=== PATIENT | female | born 1975 | race Caucasian/White ===

== ENCOUNTER 2024-07-01 21:25 | Observation (INO) | payer OTHER, SELFPAY ==
[2024-07-01 21:27] VITALS: BP 175/112; PULSE 128; RESP 18; TEMP 36.6; O2SAT 98; BMI 32.3
[2024-07-01 22:00] VITALS: BP 153/103; PULSE 121; O2SAT 98
[2024-07-01 22:30] VITALS: BP 163/110; PULSE 117; O2SAT 95
--- NOTE | 2024-07-01 22:59 | HMH.EDGENADL ---
Discharge Plan Disposition Chief Complaint: Ear Clinical Impressions Clinical Impression: Alcohol withdrawal, Acute hypokalemia, ZENIA (acute kidney injury), Acute hyponatremia, Ear pain Print Language Print Language: Pakistani Discharge ED Provider: Ke Rogel General Adult HPI General Chief complaint: Ear Stated complaint: sweats, swollen lymphnodes, weakness Time Seen by Provider: 07/01/24 22:59 Mode of Arrival: Ambulatory Source of Information: Patient Limitations: No Limitations Description of Symptoms (Recalled from ER Triage Doc. by RN): Patient reports swollen nodules bilaterally around neck/ears along with bilateral ear pain. Has not had her propanolol today. Daily drinker- last drink around 3-4:00pm today History of Present Illness HPI narrative: 49-year-old female with history of anxiety and depression, daily drinker, reports approximately 8 drinks per day, presents with left ear pain and tenderness. She reports it has been bothering her for the last couple of days. It is relatively severe. She reports swelling and tenderness in the area of her left mastoid. She reports she has only had 1 drink today. Related Data Allergies Allergy/AdvReac Type Severity Reaction Status Date / Time Sulfa (Sulfonamide Allergy Unknown Hives Verified 07/01/24 23:35 Antibiotics) (SULFA (SULFONAMIDE ANTIBIOTICS)) [facility] Disclaimer: The information contained in this section may have been updated after the patient was seen, as this information can be updated by other users. Social History Smoking Status: Current every day smoker alcohol intake: current current occupational status: other ROS Obtained: Yes All systems reviewed & no additional complaints except as documented Physical Exam General General appearance: alert and anxious Head Head exam: atraumatic and normocephalic Eye Eye exam: Present normal appearance, PERRL and EOMI ENT ENT exam: Present normal oropharynx and other (There is swelling and tenderness over the left mastoid with some protrusion of the left ear. The skin is not erythematous. There is mild erythema of the EAC bilaterally, no evidence of otitis media.) Neck Neck exam: Present normal inspection and full ROM Chest Chest inspection: Present normal inspection and symmetric chest wall rise; Absent tenderness Respiratory Respiratory exam: Present normal lung sounds bilaterally; Absent respiratory distress Cardiovascular Cardiovascular exam: Present normal rhythm and tachycardia Abdominal Exam Abdominal exam: Present soft; Absent distention, tenderness or guarding Extremities Exam Extremities exam: Present normal inspection; Absent edema or joint swelling Back Exam Back exam: Present normal inspection; Absent tenderness Neurological Exam Neurological exam: Present alert and oriented X3; Absent motor sensory deficit Psychiatric Psychiatric exam: Present anxious Skin Skin exam: Present warm, normal color and diaphoresis Lymphatic Lymphatic Findings: no adenopathy Medical Decision Making Medical Records Medical records reviewed: Yes I reviewed the patient's medical records. Screening: Per USPSTF and CDC recommendations, given the prevalence of disease in our region, it is our hospital?s policy to screen for HIV and viral Hepatitis for all patients aged 18 and over and those with ongoing risk factors. Buzz Inquiry Pt receiving controlled substance: No Buzz was queried for this patient: No Vital Signs: 07/01/24 21:27 07/01/24 22:00 07/01/24 22:30 Temperature 97.9 F Temperature Source Oral Pulse Rate 121 H 117 H Pulse Rate [Right Radial] 128 H Respiratory Rate 18 Blood Pressure 153/103 H 163/110 H Blood Pressure [Right Arm] 175/112 H Blood Pressure Mean [Right Arm] 133 Blood Pressure Source [Right Arm] Automatic Cuff Blood Pressure Position [Right Arm] Supine 02 Sat by Pulse Oximetry 98 98 95 Oxygen Delivery Method Room Air 07/01/24 23:00 07/01/24 23:30 07/02/24 00:15 Temperature Temperature Source Pulse Rate 121 H 120 H 112 H Pulse Rate [Right Radial] Respiratory Rate Blood Pressure 151/103 H 179/106 H 163/102 H Blood Pressure [Right Arm] Blood Pressure Mean [Right Arm] Blood Pressure Source [Right Arm] Blood Pressure Position [Right Arm] 02 Sat by Pulse Oximetry 95 94 L 94 L Oxygen Delivery Method 07/02/24 00:33 07/02/24 01:00 07/02/24 01:31 Temperature Temperature Source Pulse Rate 114 H 115 H 111 H Pulse Rate [Right Radial] Respiratory Rate Blood Pressure 138/78 132/88 130/80 Blood Pressure [Right Arm] Blood Pressure Mean [Right Arm] Blood Pressure Source [Right Arm] Blood Pressure Position [Right Arm] 02 Sat by Pulse Oximetry 93 L 96 96 Oxygen Delivery Method 07/02/24 02:00 07/02/24 02:30 Temperature Temperature Source Pulse Rate 110 H 114 H Pulse Rate [Right Radial] Respiratory Rate Blood Pressure 127/97 H 119/81 Blood Pressure [Right Arm] Blood Pressure Mean [Right Arm] Blood Pressure Source [Right Arm] Blood Pressure Position [Right Arm] 02 Sat by Pulse Oximetry 95 96 Oxygen Delivery Method Lab Data Lab results reviewed: Yes I reviewed the patient's lab results. Lab Results 07/01/24 23:13: WBC 16.1 H, RBC 5.35, Hgb 16.8 H, Hct 46.4, MCV 86.7, MCH 31.4 H, MCHC 36.2 H, RDW 14.8, Plt Count 365, MPV 7.7, Neut % (Auto) 81.0 H, Lymph % (Auto) 10.3, [place] % (Auto) 7.2, Eos % (Auto) 0.5, Baso % (Auto) 1.0, Neut # (Auto) 13.1 H, Lymph # (Auto) 1.7, [place] # (Auto) 1.2 H, Eos # (Auto) 0.1, Baso # (Auto) 0.2, Total Counted 100, Neutrophils % (Manual) 85 H, Lymphocytes % (Manual) 12, Monocytes % (Manual) 3, Platelet Estimate Normal, Stomatocytes 1+, PT 11.4, INR 1.02, APTT 28.1, Sodium 129 L, Potassium 1.7 L* 07/01/24 23:13: Potassium 1.7 L*, Chloride 76 L, Carbon Dioxide 38 H, Anion Gap 16.7 H, BUN 25 H, Creatinine 1.40 H, Estimated Creat Clear 74, Estimated GFR 40 L, Est GFR ( Amer) 48 L, Glucose 150 H, Calcium 9.5, Phosphorus 3.1, Magnesium 1.7, Total Bilirubin 1.9 H, AST 62 H, ALT 66, Alkaline Phosphatase 131 H, Total Protein 7.9, Albumin 4.7, Globulin 3.2, Albumin/Globulin Ratio 1.5, Serum HCG, Qual Negative, Plasma/Serum Alcohol < 10 07/01/24 23:55: Lactate 1.4 07/02/24 00:35: SARS-CoV-2 (PCR) Not detected, Influenza A Untype (PCR) Not detected, Influenza Type B (PCR) Not detected 07/01/24 23:13 07/01/24 23:13 Orders (Tests/Meds): ED MEDICATIONS Generic Name Dose Route Start Last Admin Trade Name Freq PRN Reason Stop Dose Admin Diazepam 10 mg 07/01/24 23:57 Diazepam 10mg/2ml Syringe IV 07/31/24 23:56 Q1HP PRN CIWA >16 Diazepam 5 mg 07/01/24 23:57 Diazepam 10mg/2ml Syringe IV 07/31/24 23:56 Q1HP PRN CIWA Score 8-15 Diazepam 5 mg 07/01/24 23:57 Diazepam 5mg Tablet PO 07/31/24 23:56 Q6HP PRN CIWA 2-7 Folic Acid 1 mg 07/02/24 00:33 07/02/24 00:36 Folic Acid 1mg Tablet PO 07/02/24 00:34 1 mg ONCE ONE Administration Multivitamins 10 ml/ Thiamine 1,015 mls @ 150 mls/hr 07/02/24 00:33 07/02/24 00:37 HCl 100 mg/ Magnesium Sulfate IV 07/02/24 07:18 150 mls/hr 2 gm/ Lactated Ringer's .Q6H46M JOSE Administration Iopamidol 75 ml 07/02/24 01:16 07/02/24 01:16 Iopamidol-370 (76%);100ml Bottle IV 07/02/24 01:17 75 ml ONCE ONE Administration Sodium Chloride 10 ml 07/02/24 01:16 07/02/24 01:16 Sodium Chloride 0.9% 10ml Syr (Rad Only) IV 07/02/24 01:17 10 ml ONCE ONE Administration Discontinued Medications Generic Name Dose Route Start Last Admin Trade Name Freq PRN Reason Stop Dose Admin Acetaminophen 1,000 mg 07/01/24 23:13 07/01/24 23:37 Acetaminophen 500mg Tab PO 07/01/24 23:14 1,000 mg ONCE ONE Administration Folic Acid 1 mg 07/02/24 09:00 Folic Acid 1mg Tablet PO 08/01/24 08:59 DAILY JOSE Sodium Chloride 1,000 mls @ 999 mls/hr 07/01/24 23:15 07/01/24 23:37 Sod Chlor 0.9% 1000ml Bag IV 07/02/24 00:15 999 mls/hr .Q1H1M JOSE Administration Clindamycin Phosphate 600 mg in 50 mls @ 100 mls/hr 07/01/24 23:13 07/02/24 00:26 Clindamycin 600mg/50ml D5w Premix IV 07/01/24 23:42 100 mls/hr ONCE ONE Administration Potassium Chloride/Water 100 mls @ 100 mls/hr 07/01/24 23:45 07/02/24 01:57 Potassium Chloride 10meq/100ml Ivpb IV 07/02/24 02:44 100 mls/hr Q1H JOSE Administration Ketorolac Tromethamine 30 mg 07/01/24 23:13 07/01/24 23:37 Ketorolac 30mg/Ml Vial IV 07/01/24 23:14 30 mg ONCE ONE Administration Multivitamins 1 each 07/02/24 17:00 Multivitamin Tablet PO 08/01/24 16:59 1700 JOSE Potassium Chloride 40 meq 07/01/24 23:42 07/01/24 23:50 Potassium Chloride 20meq Tab PO 07/01/24 23:43 40 meq ONCE ONE Administration Thiamine HCl 100 mg 07/02/24 09:00 Thiamine 100mg Tablet PO 07/04/24 09:01 DAILY JOSE ORDERS Category Date Time Status CT Temporal bone With Stat Cat Scan 07/02/24 00:46 Completed Activated Partial Thrombo Time Routine Lab 07/01/24 23:13 Completed CBC w/Auto Diff [Complete Blood Count Auto Diff] Stat Lab 07/01/24 23:13 Completed CMP [Comprehensive Metabolic Panel] Stat Lab 07/01/24 23:13 Completed Ethyl Alcohol Stat Lab 07/01/24 23:13 Completed HCG Qualitative, Serum Stat Lab 07/01/24 23:13 Completed Lactic Acid Stat Lab 07/01/24 23:55 Completed Magnesium Stat Lab 07/01/24 23:13 Completed Phosphorous Routine Lab 07/01/24 23:13 Completed Potassium Stat Lab 07/01/24 23:13 Completed Prothrombin Time INR Routine Lab 07/01/24 23:13 Completed Rapid PCR Covid and Flu A/B Stat Lab 07/02/24 00:35 Completed Blood Culture Stat Micro 07/02/24 00:08 Ordered EKG Request [ECG Request] Stat Y 07/01/24 23:42 Ordered ECG Data Tracing #1: I reviewed this ECG and interpreted as documented below: Sinus tachycardia with rate of 114, no significant ST changes. Possible QT prolongation, T wave flattening noted. ECG initial impression date: 07/02/24 ECG initial impression time: 00:05 Tissue Perfus/Sepsis Re-Eval Sepsis Re-Evaluation Performed: Yes Date Performed: 07/02/24 Time Performed: 03:00 Medical Decision Narrative: 49-year-old female with history of anxiety depression, daily drinker, has not had much to drink today, presents with concerns for left ear pain, mastoid swelling and tenderness. On arrival patient is hypertensive, tachycardic to 120, anxious and diaphoretic appearing. Exam shows swelling and tenderness behind the left mastoid without overlying erythema. . History was obtained via interactive discussion with patient. Differential includes but is not limited to mastoiditis, otitis externa, otitis media, lymphadenopathy, dehydration, alcohol withdrawal.. Patient was given IV clindamycin, rally pack, IV and p.o. potassium for symptomatic management and correction of underlying abnormalities. Workup initiated including CBC CMP mag blood cultures CT temporal bones to assess for mastoiditis. Initial CIWA score of 6, patient given Valium 10 mg IV. On re-evaluation, patient reports symptomatic improvement. Vital signs improved but patient angélica tachycardic. Laboratory workup independently interpreted by me and significant for severe hypokalemia with potassium 1.7. On recheck potassium is confirmed at 1.7. Other electrolyte derangements include hyponatremia, hypochloremia, creatinine 1.4 with unknown baseline, BUN elevated, bilirubin and LFTs mildly elevated. White count 16. Alcohol level undetectable, COVID/flu swab negative. Imaging independently interpreted by me and significant for no evidence of mastoiditis. See radiology read for full review of final results. Given patient history, exam and workup, patient's presentation most likely represents acute alcohol withdrawal with significant electrolyte derangements including hypokalemia, hyponatremia, ZENIA with creatinine 1.4 and unknown baseline. Interactive discussion was had with patient, she is agreeable to admission. Interact discussion was had with the hospitalist on-call for admission.. Procedures Risk/Benefits of Procedure(s) Were Explained: Yes Critical Care Critical Care Time Critical Care Time: No
[2024-07-01 23:00] VITALS: BP 151/103; PULSE 121; O2SAT 95
[2024-07-01 23:23] LABS: Basophils # 0.2 K/mm3 (0-0.2); Eosinophils # 0.1 K/mm3 (0.0-0.4); Eosinophils % 0.5 % (0.1-12.0); Hematocrit 46.4 % (37.0-47.0); Hemoglobin 16.8 g/dL (12.2-16.2); Lymphocytes # 1.7 K/mm3 (0.7-4.5); Lymphocytes % 10.3 % (10-50); Mean Corpuscular HGB Conc 36.2 g/dL (31.8-35.4); Mean Corpuscular Hemoglobin 31.4 pg (27.0-31.2); Mean Corpuscular Volume 86.7 fl (81-99); Mean Platelet Volume 7.7 fl (7.4-10.4); Monocytes # 1.2 K/mm3 (0.1-1.0); Monocytes % 7.2 % (1.7-9.3); Neutrophils # 13.1 K/mm3 (1.8-7.8); Platelet Count 365 K/mm3 (142-424); Red Blood Count 5.35 M/mm3 (4.20-5.40); Red Cell Distribution Width 14.8 % (11.5-17.5); White Blood Count 16.1 K/mm3 (4.8-10.8)
[2024-07-01 23:24] LABS: MANUAL DIFFERENTIAL MANUAL DIFFERENTIAL (MANUAL DIFF)
[2024-07-01 23:30] VITALS: BP 179/106; PULSE 120; O2SAT 94
[2024-07-01 23:35] LABS: Albumin Level 4.7 g/dl (3.5-5.0); Chloride 76 mmol/L (98-107); Sodium 129 mmol/L (136-145)
[2024-07-01] MEDS: ACETAMINOPHEN 500MG TAB 1000 MG PO (23:37)
[2024-07-01] MEDS: KETOROLAC 30MG/ML VIAL 30 MG IV (23:37)
[2024-07-01] MEDS: 0.9 % SODIUM CHLORIDE 1000ML 1,000 ML 999 ML IV (23:37)
[2024-07-01 23:38] LABS: Alanine Aminotransferase 66 U/L (12-78); Albumin/Globulin Ratio 1.5 (1.1-1.8); Alkaline Phosphatase 131 U/L (38-126); Anion Gap 16.7 mEq/L (5-15); Aspartate Amino Transferase 62 U/L (14-36); Bilirubin,Total 1.9 mg/dl (0.2-1.3); Blood Urea Nitrogen 25 mg/dl (7-17); Calcium 9.5 mg/dl (8.4-10.2); Carbon Dioxide 38 mmol/L (22.0-30.0); Creatinine Clearance Estimated 74 mL/min (50-200); Estimated Glomerular Filt Rate 40 ml/min (>60); GFR (African American) 48 ML/MIN (>60); Globulin 3.2 g/dL (1.3-3.2); Glucose 150 mg/dl (74-100); HCG Qualitative, Serum Negative (Negative); Total Protein,Serum 7.9 g/dl (6.3-8.2)
[2024-07-01 23:41] LABS: Potassium 1.7 mmoL/L (3.5-5.1)
--- NOTE | 2024-07-01 23:41 | PC.NURSE ---
Critical potassium 1.[address] Ke Rogel
[2024-07-01 23:45] LABS: Lymphocytes % 12 % (10-50); Monocytes % 3 % (2-9); Neutrophils % 85 % (42-76); Platelet Estimate Normal; Stomatocytes 1+; Total Cells Counted 100
[2024-07-01] MEDS: POTASSIUM CHLORIDE 20MEQ TAB 40 MEQ PO (23:50)
--- NOTE | 2024-07-01 23:56 | PC.NURSE ---
Blood cultures drawn by lab
[2024-07-02] VITALS (13 sets, daily range): BP systolic 119–163; BP diastolic 64–102; PULSE 72–115; RESP 18–19; TEMP 36.4–37.1; O2SAT 93–98; BMI 32.3
--- NOTE | 2024-07-02 00:05 | ECG_ITS ---
APPROVED REPORT Exam: Resting ECG HR:114 bpm ECG Measurements Heart Rate 114 AXES AK 140 P 66 QRSd 94 QRS -29 QT 300 T 1 QTc 368 Conclusion SINUS TACHYCARDIA POSSIBLE ANTERIOR MYOCARDIAL INFARCTION , PROBABLY OLD [30 ms Q WAVE IN V3/V4, OR R < 0.2 mV IN V4] ABNORMAL RHYTHM ECG UNCONFIRMED REPORT Electronically signed by : ROSIO DUQUE, 07/02/2024 06:20:28
--- NOTE | 2024-07-02 00:11 | PC.NURSE ---
WA of [address] Rogel Per Juan F, give 10 of valium IV now
[2024-07-02 00:14] LABS: Potassium 1.7 mmoL/L (3.5-5.1)
[2024-07-02 00:17] LABS: Lactic Acid 1.4 mmol/L (0.7-2.1)
[2024-07-02 00:17] LABS: Ethyl Alcohol < 10 mg/dl (0-10); Phosphorous 3.1 mg/dl (2.5-4.5)
[2024-07-02 00:20] LABS: Activated Partial Thrombo Time 28.1 seconds (22.8-30.6); INR 1.02 (0.9-1.1); Prothrombin Time 11.4 seconds (10.1-12.5)
[2024-07-02] MEDS: CLINDAMYCIN PHOSPHATE/D5W 600 MG/50 ML PIGGYBACK 100 MG IV (00:26)
[2024-07-02] MEDS: FOLIC ACID 1MG TABLET 1 MG PO (00:36)
[2024-07-02] MEDS: MVI, ADULT NO.1 WITH VIT K 10 ML, THIAMINE HCL 100 MG, MAGNESIUM SULFATE 2 GM in LACTAT... 150 ML IV (00:37)
[2024-07-02 00:38] LABS: Coronavirus 19, PCR Not Detected (NotDetected); Influenza A, PCR Not Detected (NotDetected); Influenza B, PCR Not Detected (NotDetected)
[2024-07-02 00:41] LABS: Magnesium 1.7 mg/dl (1.6-2.3)
[2024-07-02] MEDS: KCl 10mEq/100ml 100 ML 100 MEQ IV ×3 (00:42→01:57)
--- NOTE | 2024-07-02 00:46 | CT_ITS ---
PROCEDURE INFORMATION: Exam: CT Temporal Bones With Contrast. Exam date and time: 07/02/2024 1:08 AM Age: 49 years old Clinical indication: Other: Left mastoid pain swelling TECHNIQUE: Imaging protocol: Computed tomography of the temporal bones with contrast. Radiation optimization: All CT scans at this facility use at least one of these dose optimization techniques: automated exposure control; mA and/or kV adjustment per patient size (includes targeted exams where dose is matched to clinical indication); or iterative reconstruction. Contrast material: ISOVUE 370; Contrast volume: 75 ml; Contrast route: INTRAVENOUS (IV); COMPARISON: No relevant prior studies available. FINDINGS: Right inner ear: Normal. Right ossicles and middle ear: Normal. The middle ear ossicles are intact. Right external auditory canal: Normal. Right facial nerve canal: Normal. Right jugular foramen: No jugular dehiscence. Right carotid canal: No aberrant carotid canal. Right mastoid air cells: Normal. No mastoid effusions. Left inner ear: Normal. Left ossicles and middle ear: Normal. The middle ear ossicles are intact. Left external auditory canal: Normal. Left facial nerve canal: Normal. Left jugular foramen: No jugular dehiscence. Left carotid canal: No aberrant carotid canal. Left mastoid air cells: Normal. No mastoid effusions. Orbital cavities: No acute intraorbital abnormality. Globes are intact and symmetric. Paranasal sinuses: Visualized paranasal sinuses are clear. Salivary glands: Parotid glands appear normal. Bones/joints: Normal. No acute fracture. No osseous erosion or destruction. Chronic appearing focal dehiscence in the right lamina papyracea. Soft tissues: Unremarkable. IMPRESSION: No acute findings.
[2024-07-02] MEDS: IOPAMIDOL-370 (76%);100ML BOTTLE 75 ML IV (01:16)
[2024-07-02] MEDS: SODIUM CHLORIDE 0.9% 10ML SYR (RAD ONLY) 10 ML IV (01:16)
--- NOTE | 2024-07-02 03:01 | PC.NURSE ---
Attempted to call Dwight to give report, dwight did not answer phone.
--- NOTE | 2024-07-02 03:02 | PC.NURSE ---
Notified charger testerROD Hartman that I was not able to get ahold of dwight. States she will have her call back down here.
--- NOTE | 2024-07-02 03:28 | P.HP_ITS ---
<Statement entered by Bautista Garcia MD - 07/03/24 17:43> I personally evaluated patient and agree with the plan of care as outlined by the DRUM ATTENDANT. History of Present Illness *Admission Date: 07/02/24 *Reason for visit:: Hypokalemia *History of present illness: Mckayla Miller is a 49-year-old female past medical history significant for alcohol abuse, anxiety, depression, HTN who presents emergency room tonight with complaints of ear pain. Ms. Miller reports she fell like she had some swollen nodules bilaterally around her neck and behind her ears, reports denies any fever. Tells me she is a daily drinker, drinks 8 or more white claws daily. Denies any alcohol withdrawal or seizures in the past. Did have 1 drink earlier today. Works at a local assisted. Denies any cough, chest pain, shortness of breath, abdominal pain, bowel or bladder dysfunction. No dysuria noted. No nausea, vomiting, diarrhea. No focal neurodeficits noted. Denies a headache or neck pain. Smokes about a pack of cigarettes per day. Denies any illicit drug use. Lab work in the ER showed an elevated white count of 16,000, potassium critically low at 1.7, sodium at 129. BUN and creatinine elevated at 25 and 1.4, anion gap elevated at 16. Lactic acid at 1.4, she was negative for flu and COVID. Serum alcohol level is less than 10. Patient presented tachycardic and anxious appearing. She was given Valium down in the ER and at 1 L IV fluid bolus. She was also started on a banana bag . She will be admitted to the hospitalist service for hypokalemia and ZENIA. [facility] Disclaimer: The information contained in this section may have been updated after the patient was seen, as this information can be updated by other users. Social History (Updated 07/02/24 @ 03:02 by Ke Rogel MD) Smoking Status: Current every day smoker alcohol intake: current current occupational status: other Review of Systems Review of Systems Review of systems:: pertinent systems reviewed and negative unless documented below Constitutional Constitutional: Reports fatigue and Reports lethargy ENT Ears, Nose, Mouth, and Throat: Reports otalgia Endocrine Endocrine: Reports fatigue Meds Home Medications and Allergies New Prescriptions to Start Prescriptions: Allergies Allergy/AdvReac Type Severity Reaction Status Date / Time Sulfa (Sulfonamide Allergy Unknown Hives Verified 07/01/24 23:35 Antibiotics) (SULFA (SULFONAMIDE ANTIBIOTICS)) Exam Data for Last 24 hours Vital signs and Labs for Last 24 Hours: Temp Pulse Resp BP Pulse Ox O2 Del Method 97.9 F 72 18 130/64 96 Room Air 07/02/24 03:24 07/02/24 03:24 07/02/24 03:24 07/02/24 03:24 07/02/24 02:30 07/02/24 03:24 Laboratory Results - last 24 hr 07/01/24 23:13: WBC 16.1 H, RBC 5.35, Hgb 16.8 H, Hct 46.4, MCV 86.7, MCH 31.4 H , MCHC 36.2 H, RDW 14.8, Plt Count 365, MPV 7.7, Neut % (Auto) 81.0 H, Lymph % (Auto) 10.3, [place] % (Auto) 7.2, Eos % (Auto) 0.5, Baso % (Auto) 1.0, Neut # (Auto) 13.1 H, Lymph # (Auto) 1.7, [place] # (Auto) 1.2 H, Eos # (Auto) 0.1, Baso # (Auto) 0.2, Total Counted 100, Neutrophils % (Manual) 85 H, Lymphocytes % (Manual) 12, Monocytes % (Manual) 3, Platelet Estimate Normal, Stomatocytes 1+, PT 11.4, INR 1.02, APTT 28.1, Sodium 129 L, Potassium 1.7 L* 07/01/24 23:13: Potassium 1.7 L*, Chloride 76 L, Carbon Dioxide 38 H, Anion Gap 16.7 H, BUN 25 H, Creatinine 1.40 H, Estimated Creat Clear 74, Estimated GFR 40 L, Est GFR ( Amer) 48 L, Glucose 150 H, Calcium 9.5, Phosphorus 3.1, Magnesium 1.7, Total Bilirubin 1.9 H, AST 62 H, ALT 66, Alkaline Phosphatase 131 H, Total Protein 7.9, Albumin 4.7, Globulin 3.2, Albumin/Globulin Ratio 1.5, Serum HCG, Qual Negative, Plasma/Serum Alcohol < 10 07/01/24 23:55: Lactate 1.4 07/02/24 00:35: SARS-CoV-2 (PCR) Not detected, Influenza A Untype (PCR) Not detected, Influenza Type B (PCR) Not detected I & O for Last 24 hours: Intake & Output 06/29/24 06/30/24 07/01/24 07/02/24 23:59 23:59 23:59 23:59 Weight 96.615 kg Constitutional Constitutional: no acute distress *Routine HEENT Exam Head: Present normocephalic Eye: Present EOMI and PERRL ENT: Present mucous membranes moist *Routine Neck Exam Neck: Present supple; Absent lymphadenopathy *Routine Respiratory Exam Respiratory: Present CTA bilaterally *Routine Cardiovascular Exam Cardiovascular: Present RRR and tachycardia *Routine Abdominal Exam Abdominal: Present soft and normoactive bowel sounds; Absent tenderness *Routine Rectal Exam Rectal:: deferred *Routine Genitalia Exam Genitalia:: deferred *Routine Extremities Exam Extremities: Absent cyanosis, clubbing or edema *Routine Skin Exam Skin: Present warm; Absent rash *Routine Neurological Exam Neurological: Present alert and oriented X3 Assessment and Plan *Assessment and plan (1) ZENIA (acute kidney injury): Status: Acute Category: Medical Code(s): N17.9 - Acute kidney failure, unspecified (2) Acute hypokalemia: Status: Acute Category: Medical Code(s): E87.6 - Hypokalemia (3) Alcohol withdrawal: Status: Acute Qualifiers: Complication of substance-induced condition: with unspecified complication Qualified Code(s): F10.939 - Alcohol use, unspecified with withdrawal, unspecified Category: Medical Code(s): F10.939 - Alcohol use, unspecified with withdrawal, unspecified Plan Assessment: This is a 49-year-old female being admitted for hypokalemia and ZENIA. On my exam, patient is lying in bed in no acute distress. Reports she is feeling much better. Plan: Admit to observation-MedSurg Hypokalemia -From poor p.o. intake? -Potassium replacement being given, will recheck potassium levels throughout the day and replace per protocol -Telemetry Alcohol abuse Alcohol withdrawal? -Patient reports that she does feel anxious, has not taken her Inderal today for her anxiety. -As needed Valium -Check CIWA scores frequently -Telemetry ZENIA versus CKD? -Have no prior lab values to compare her current creatinine to -Received a IV fluid bolus in the ER and is getting a banana bag -Avoid nephrotoxic medications -Monitor serum BUN and creatinine Leukocytosis meeting SIRS criteria -Unclear source of leukocytosis -Will order a UA and a UDS -Patient without abdominal pain, no chest pain, no cough. Will defer further imaging at this time. If white count continues to elevate, will reevaluate the need for additional imaging Anxiety/depression -Patient takes Inderal, is unsure of the dose and I have no records of prior fill history DVT prophylaxis: Heparin CODE STATUS: Full code Surrogate decision maker: Nesha [phone] Skin: Low risk Estimated length of stay: Less than 2 midnights
[2024-07-02] MEDS: diazePAM 5MG TABLET 5 MG PO ×2 (05:21→23:42)
[2024-07-02 06:44] LABS: Blood Urea Nitrogen 20 mg/dl (7-17); Calcium 8.3 mg/dl (8.4-10.2); Carbon Dioxide 39 mmol/L (22.0-30.0); Chloride 82 mmol/L (98-107); Creatinine Clearance Estimated 86 mL/min (50-200); Estimated Glomerular Filt Rate 48 ml/min (>60); GFR (African American) 58 ML/MIN (>60); Glucose 119 mg/dl (74-100); Sodium 131 mmol/L (136-145)
[2024-07-02 07:05] LABS: Magnesium 2.3 mg/dl (1.6-2.3)
[2024-07-02 07:40] LABS: Basophils # 0.1 K/mm3 (0-0.2); Basophils % 0.7 % (0.1-2.0); Eosinophils # 0.1 K/mm3 (0.0-0.4); Eosinophils % 0.7 % (0.1-12.0); Hematocrit 39.1 % (37.0-47.0); Lymphocytes # 2.2 K/mm3 (0.7-4.5); Mean Corpuscular HGB Conc 35.9 g/dL (31.8-35.4); Mean Corpuscular Hemoglobin 31.5 pg (27.0-31.2); Mean Corpuscular Volume 87.6 fl (81-99); Mean Platelet Volume 7.7 fl (7.4-10.4); Monocytes # 0.9 K/mm3 (0.1-1.0); Monocytes % 10.2 % (1.7-9.3); Neutrophils # 5.7 K/mm3 (1.8-7.8); Neutrophils % 63.5 % (37.0-80.0); Platelet Count 322 K/mm3 (142-424); Red Blood Count 4.46 M/mm3 (4.20-5.40); Red Cell Distribution Width 14.9 % (11.5-17.5); White Blood Count 8.9 K/mm3 (4.8-10.8)
--- NOTE | 2024-07-02 08:00 | PC.NURSE ---
07/02/24 0700 Pt. admitted overnight for Hypokalemia, alcohol withdrawl. Pt. Alert and orientated x 4. CIWA score 2. vital signs stable. pt. slept off and on. up to bathroom with assist x 1. vital signs stable, personal items and call white in reach,
[2024-07-02] MEDS: 0.9 % SODIUM CHLORIDE 1000ML 1,000 ML 999 ML IV (08:09)
--- NOTE | 2024-07-02 08:09 | HMH.PHAINT1 ---
Pharmacy Intervention Comments: MEDICATION RECONCILIATION COMPLETED ON PATIENT USING EXTERNAL FILL HISTORY AND NAIF REPORT. -MARYANN SILVA, WILLIED
[2024-07-02] MEDS: POTASSIUM CHLORIDE 20MEQ TAB 40 MEQ PO (08:10)
[2024-07-02] MEDS: PROPRANOLOL 20MG TAB 40 MG PO (08:10)
[2024-07-02] MEDS: CITALOPRAM 20MG TABLET 20 MG PO (08:11)
[2024-07-02] MEDS: KCl 20mEq/100ml 100 ML 50 MEQ IV ×7 (08:12→23:43)
--- OUTSIDE RECORDS SUMMARY | 2024-07-02 10:04 | XMS_ITS | Encounter Summary ---
[facility] Address [address] [place] [address] Care Team Providers Care Leather Worker Name Role Phone Provider, No Known Primary Care Provider Unavail able Reason for Visit * Reason Comments Diarrhea watery the last 24 t imes. had this same thing 3 weeks ago until it went away. Feeling lightheaded. No appetite Fever faced flushed, sweat /chills, bodyaches Encounter Details Date Type Department Care Team (Latest Contact Info) Description 09/16/2017 4:17 PM EST - 09/16/2017 4:39 PM EST Hospital Encounter [facility] [address] [facility] [address] [place] [address] Carmela Moore DO Febrile illness (Primary Dx) Discharge Disposition: Home or Self Care Social History Tobacco Use Types Packs/Day Years Used Date Smoking Tobacco: Every Day Smokeless Tobacco: Never Comments Unknown Sex and Gender Information Value Date Recorded Sex Assigned at Not on file Legal Sex Female 12:25 PM EDT Gender Identity Not on file Sexual Orientation Not on file documented as of this encounter Last Filed Vital Signs Vital Sign Reading Time Taken Comments Blood Pressure 109/74 09/16/2017 4:29 PM EST Pulse 92 09/16/2017 4:29 PM EST Temperature 37.2 ??C (99 ??F) 09/16/2017 4:29 PM EST Respiratory Rate 18 09/16/2017 4:29 PM EST Oxygen Saturation 99% 09/16/2017 4:29 PM EST Inhaled Oxygen Concentration - - Weight - - Height - - Body Mass Index - - documented in this encounter Medications at Time of Discharge atenolol (TENORMIN) 100 MG tablet Take 100 mg by mouth Daily. documented as of this encounter ED Notes * Carmela Moore DO - 09/16/2017 4:38 PM EST Subjective History of Present Illness Pt states she feels very weird she is dizzy and feel numbness in her arms and hands. Review of Systems Objective Physical Exam BP 109/74 (BP Location: Left arm, Patient Position: Sitting) Pulse 92 Temp 99 ??F (37.2 ??C) (Temporal Artery ) Resp 18 SpO2 99% Past Medical History: Diagnosis Date ??? Anxiety Social History Social History ??? Marital status: Single Spouse name: N/A ??? Number of children: N/A ??? Years of education: N/A Occupational History ??? Not on file. Social History Main Topics ??? Smoking status: Current Every Day Smoker ??? Smokeless tobacco: Never Used ??? Alcohol use Not on file ??? Drug use: No ??? Sexual activity: Defer Other Topics Concern ??? Not on file Social History Narrative ??? No narrative on file Allergies Allergen Reactions ??? Sulfa Antibiotics Anaphylaxis No current facility-administered medications for this encounter. Current Outpatient Prescriptions: ??? atenolol (TENORMIN) 100 MG tablet, Take 100 mg by mouth Daily., Disp: , Rfl: Procedures UC Course: ED Course MDM Diagnoses that have been ruled out: None Diagnoses that are still under consideration: None Final diagnoses: Febrile illness Pt sent to ER Medications administered for this visit: Medications - No data to display Medication List ASK your doctor about these medications atenolol 100 MG tablet Commonly known as: TENORMIN Labs Reviewed POCT INFLUENZA A/B - Normal Imaging Results: No orders to display Carmela Moore DO 09/16/17 1639 documented in this encounter Plan of Treatment Not on file documented as of this encounter Procedures Procedure Name Priority Date/Time Associated Diagnosis Comments POCT INFLUENZA A/B STAT 09/16/2017 4: 37 PM EST documented in this encounter Results * POCT Influenza A/B (09/16/2017 4:37 PM EST) Rapid Influenza A Ag NEG [facility] Rapid Influenza B Ag NEG [facility] Internal Control Passed Passed [facility] Lot Number [id number] [facility] Expiration Date 07/09/2020 [facility] Swab 09/16/2017 4:37 PM EST Carmela Moore DO POINT OF CARE TEST ORDERABLES Final Result [facility]
[address] [place] [address], documented in this encounter Visit Diagnoses Diagnosis Febrile illness- Primary documented in this encounter Care Teams Leather Worker Relationship Specialty Start Date End Date Provider, [place] [address] PCP - General 09/16/17 documented as of this encounter
--- OUTSIDE RECORDS SUMMARY | 2024-07-02 10:04 | XMS_ITS | Encounter Summary ---
Author Organization Healthcare Address [address] [place] [address] Care Team Providers Care Auditor Appraiser Name Role Phone Bautista Freire MD Primary Care Provider [phone] Encounter Details Date Type Department Care Team (Latest Contact Info) Description 05/05/2024 Travel Social History Tobacco Use Types Packs/Day Years Used Date Smoking Tobacco: Never Assessed Comments Unknown Sex and Gender Information Value Date Recorded Sex Assigned at Not on file Legal Sex Female 8:29 PM EDT Gender Identity Not on file Sexual Orientation Not on file documented as of this encounter Plan of Treatment Not on file documented as of this encounter Visit Diagnoses Not on filedocumented in this encounter Additional Health Concerns Assessment Noted Time A Body Mass Index follow-up plan has been documented for the patient 05/05/2024 10:42 AM EDT documented as of this encounter Care Teams Auditor Appraiser Relationship Specialty [place] [address] [place] [id number] PCP - General 12/15/20 documented as of this encounter
--- OUTSIDE RECORDS SUMMARY | 2024-07-02 10:04 | XMS_ITS | Encounter Summary ---
Author Organization [facility] Address [address] [place] [id number] Care Team Providers Care Hand Plate Stacker Name Role Phone Provider, No Known Primary Care Provider Unavail able Reason for Visit * Reason Comments Abnormal Lab * Auth/Cert Specialty Diagnoses / Procedures Referred By Tonya t Referred To Contact Diagnoses Acute blood loss anemia Procedures n/a Referral ID Status Reason Start Date Expiration Date Visits Re quested Visits Authorized [id number] 1 1 Encounter Details Date Type Department Care Team (Late st Contact Info) Description 07/03/2018 5:31 PM EST - 07/03/2018 11:39 PM [facility] Emergency [facility] EMERGENCY DEPARTMENT [address] [place] [address] Shaheen Lackey MD [address] [facility] [place] [address] Lucille Pablo DO Acute upper GI bleed (Primary Dx); Acute blood loss anemia; History of osteomyelitis Discharge Disposition: Left Against Medical Advice Social History Tobacco Use Types Packs/Day Years Used Date Smoking Tobacco: Every Day Smokeless Tobacco: Never Alcohol Use Standard Drinks/Week Comments No 0 (1 standard drink = 0.6 oz pur e alcohol) AUDIT-C Answer Date Recorded Frequency of Alcohol Consumption Never 07/04/2018 Average Number of Drinks Not on file 018 Frequency of Binge Drinking Not on file 08/2017 Comments Unknown Sex and Gender Information Value Date Recorded Sex Assigned at Not on file Legal Sex Female 12:25 PM EDT Gender Identity Not on file Sexual Orientation Not on file documented as of this encounter Last Filed Vital Signs Vital Sign Reading Time Taken Comments Blood Pressure 128/71 07/03/2018 11:11 PM EST Pulse 99 07/03/2018 11:11 PM EST Temperature 37.6 ??C (99.6 ??F) 07/03/2018 11:[address] Respiratory Rate 18 07/03/2018 11:11 PM EST Oxygen Saturation 98% 07/03/2018 11:11 PM EST Inhaled Oxygen Concentration - - Weight 88.9 kg (196 lb) 07/03/2018 3:45 PM EST Height 172.7 cm (5' 8 ) 07/03/2018 3:45 PM EST Body Mass Index 29.8 07/03/2018 3:45 PM EST documented in this encounter Discharge Instructions * Discharge Instructions* Steven Simons PA-C - 07/03/2018 9:47 PM EST Follow-up with your physicians in [place] as soon as possible. Return to the emergency department immediately with any change or worsening of symptoms. * Attachments The following attachments cannot be sent through Care Everywhere. * Gastrointestinal Bleeding (Barbadian) * Anemia (Barbadian) * Blood Transfusion Adult Care After (Barbadian) documented in this encounter Medications at Time of Discharge atenolol (TENORMIN) 100 MG tablet Take 100 mg by mouth Daily. furosemide (LASIX) 40 MG tablet Take 40 mg by mouth 2 (Two) Times a Day. oxyCODONE-acetami nophen (PERCOCET) 7.5-325 MG per tablet Take 1 tablet by mouth Every 6 (Six) Hours As Needed. pantoprazole (PROTONIX) 40 MG EC tablet Take 1 tablet by mouth 2 (Two) Times a Day. 30 tablet 07/03/2018 topiramate (TOPAMAX) 50 MG tablet Take 50 mg by mouth 2 (Two) Times a Day. documented as of this encounter Consult Notes * Arslan Cartwright MD - 07/03/2018 10:08 PM EST Images from the original note were not included. Primary Care Physician: Provider, No Known Chief complaint Low hemoglobin. History of Present Illness 43-year-old female presented to ED secondary to low H&H on the lab-done at [facility] in [place]. Patient does complain of fatigue, no lightheadedness dizziness. Do not complain of any overt GI bleeding-do not complain of any bright red or dark blood with the stools. Do not complain of upper abdominal pain, or overt reflux symptoms. Patient has significant use of NSAIDs-800 mg 3-4 times a day for past 2 months secondary to hip pain. Patient does complain of heavy menstrual bleeding, last cycle 2 weeks back-last for 6 days, associated with bloating, no significant abdominal pain. 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 No known history of fibroids as per patient. Patient has a recent complex left hip replacement done at [facility]/[place]-for surgery in April 2018-complicated with osteomyelitis-status post joint washout was none. Again patient had a spacer placed on 06/26-at that point her hemoglobin was 7. Patient has been on vancomycin-1 g twice a day, currently changed to once a day, Rocephin 2 g once a day-follows up with infectious disease at [facility]. Patient does complain of worsening swelling in her left hip-surgical site associated with erythema,and discharge. Does have pain-which is chronic, controlled with pain medications. Do not complain of any fever, chills, sore throat, headache, focal neurological symptoms. Do not complain of any cough, abdominal pain. Review of Systems Complete ROS done, which is negative except as above and HPI. Past Medical History: Past Medical History: Diagnosis Date ??? Anxiety-atenolol 100 mg by mouth daily History of deep/PEEP fracture on left leg-complicated by MRSA infection-5 surgeries done. Past Surgical History: Past Surgical History: Procedure Laterality Date ??? ADENOIDECTOMY ??? HIP SURGERY ??? ORIF TIBIA/FIBULA FRACTURES ??? ORIF WRIST FRACTURE ??? TONSILLECTOMY ??? TUBAL ABDOMINAL LIGATION Family History: family history -review noncontributory. Social History: reports that she has been smoking. she has never used smokeless tobacco. She reports that she does not drink alcohol or use drugs. Medications: (Not in a hospital admission) Allergies Allergen Reactions ??? Sulfa Antibiotics Anaphylaxis Physical Exam: Vitals: 07/03/18 2131 BP: 110/95 Pulse: 97 Resp: 18 Temp: 99.6 SpO2: 100% VITALS- ABOVE. GENERAL- Not distressed, well nourished. RS- CTA-BL, , No wheezing , no crackles, good effort. CVS- s1s2 Regular, no murmur. ABD- soft, non tender, not distended, no organomegaly. BS good. EXT- left hip, indio anteriorly, with clear discharge 3 some of the indio, erythema with edema surrounding the surgical site almost extending up to the knee, Pulses + . NEURO- AAO-3, power 5/5 in all ext, no gross sensory deficit, cranial nerves intact. EYES- Conjunctivae are normal. Pupils are equal, round, and reactive to light. No scleral icterus. ENT- no external ear nose lesions, mucosa moist. NECK- No tracheal deviation present. No thyromegaly present,No cervical lymphadenopathy. JOINTS/MSK- no deformity, no swelling. SKIN- no rash , warm to touch. PSYCHIATRIC- has a normal mood and affect.Thought content normal. Results Reviewed: Data. Results from last 7 days Lab Units 07/03/18 1632 WBC 10*3/mm3 13.72* HEMOGLOBIN g/dL 5.9* HEMATOCRIT % 19.5* PLATELETS 10*3/mm3 845* INR 1.08 Results from last 7 days Lab Units 07/03/18 1632 SODIUM mmol/L 131* POTASSIUM mmol/L 3.4* CHLORIDE mmol/L 103 CO2 mmol/L 14.0* BUN mg/dL 20 CREATININE mg/dL 1.66* GLUCOSE mg/dL 101* CALCIUM mg/dL 8.9 ALT (SGPT) U/L 18 AST (SGOT) U/L 15 Brief Urine Lab Results (Last result in the past 365 days) Color Clarity Blood Leuk Est Nitrite Protein CREAT Urine HCG 07/03/18 1852 Yellow Clear Small (1+) Negative Negative Negative No results found for: PHART, PCO2 ?? Assessment/Plan Old records reviewed and summarized in PM hx ?? anemia-appears somewhat chronic process, patient remembers her hemoglobin being 10 preop, postop being 7. -Patient is getting a transfusion right now, her stool occult was positive-but she does have a history of hemorrhoids, no overt bleeding as per patient. -Likely a combination of postop anemia, and bleeding. ?? Left hip postop infection-need to continue Rocephin, vancomycin -Patient is quite anxious, in tears-discussed in details-best course will be to follow up with her orthopedic surgeon MEGHA. ?? AK I -Likely a combination of medication, dehydration. -Encouraged patient by mouth hydration, patient already got normal saline 500 bolus, and currently eating. ?? After discussing in detail about further management-and discussing with ER attending, patient is not willing to stay for admission. -She would like to complete the transfusion and will most likely sign out AMA from the ER-to follow-up with [facility] in a.m. ?? But if she changes her mind and willing to stay , will admitted the pt. DVT PXL -lesly's/scds -Lovenox-none. ? I discussed the patients findings and my recommendations with: patient/family. ?? I believe this patient meets observation status. ? Arslan Cartwright MD 07/03/18 9:53 PM ? I have personally reviewed current lab, radiology, and ekg . documented in this encounter ED Notes * Steven Simons PA-C - 07/03/2018 5:34 PM EST Francine Miller is a 43 y.o.female who presents to the emergency department with complains of abnormallab results. The patient had blood work drawn at [facility] yesterday and received a call earlier today that she should go to the emergency department becauase her hemoglobin was 6 and her hematocrit was 21. The patient had her left hip replaced in April and has had two other surgeries on her left hip since then including placement of an antibiotic spacer in June for osteomyelitis.Most recently was admitted to [facility] in [facility] for postoperative wound infection of the left hip, abscess of the left thigh and status post left hip replacement. She has also been on Vancomycin and Rocephin since 05/15/18. She denies chest pain, difficulty breathing, black or tarry stools, hematemesis, or hematuria although she feels that she has been generally weak and fatigues easily with minimal exertion. There are no other acute complaints at this time. History provided by: Patient Illness Quality: Abnormal lab results Severity: Moderate Onset quality: Unable to specify Duration: 1 day Timing: Constant Progression: Unable to specify Chronicity: New Context: The patient was sent to the emergency department for a hemoglobin of 6 and a hematocrit of21 Relieved by: None tried Worsened by: Nothing Ineffective treatments: None tried Associated symptoms: fatigue, headaches and nausea Associated symptoms: no abdominal pain, no chest pain, no fever, no shortness of breath and no vomiting (no hematemesis) Review of Systems Constitutional: Positive for fatigue. Negative for chills and fever. Respiratory: Negative for shortness of breath. Cardiovascular: Negative for chest pain. Gastrointestinal: Positive for blood in stool and nausea. Negative for abdominal pain, anal bleeding, constipation and vomiting (no hematemesis). Genitourinary: Negative for difficulty urinating, dysuria, flank pain, frequency, hematuria and urgency. Skin: Positive for pallor. Neurological: Positive for dizziness, weakness, light-headedness and headaches. All other systems reviewed and are negative. Past Medical History: Diagnosis Date ??? Anxiety Allergies Allergen Reactions ??? Sulfa Antibiotics Anaphylaxis Past Surgical History: Procedure Laterality Date ??? ADENOIDECTOMY ??? HIP SURGERY ??? ORIF TIBIA/FIBULA FRACTURES ??? ORIF WRIST FRACTURE ??? TONSILLECTOMY ??? TUBAL ABDOMINAL LIGATION History reviewed. No pertinent family history. Social History Socioeconomic History ??? Marital status: Single Spouse name: Not on file ??? Number of children: Not on file ??? Years of education: Not on file ??? Highest education level: Not on file Tobacco Use ??? Smoking status: Current Every Day Smoker ??? Smokeless tobacco: Never Used Substance and Sexual Activity ??? Alcohol use: No Frequency: Never ??? Drug use: No ??? Sexual activity: Defer Objective Physical Exam Constitutional: She is oriented to person, place, and time. She appears well- developed and well-nourished. Non-toxic appearance. No distress. Pleasant, awake, alert, and non-toxic appearing. Blood pressure is 94/54. HENT: Head: Normocephalic and atraumatic. Mucus membranes are pale and moist. Eyes: Conjunctivae are normal. No scleral icterus. Conjunctivae are pale. Neck: Normal range of motion. Neck supple. Cardiovascular: Regular rhythm and normal heart sounds. Tachycardia present. No murmur heard. Heart rate is 104. Pulmonary/Chest: Effort normal and breath sounds normal. No respiratory distress. Abdominal: Soft. Bowel sounds are normal. There is no tenderness. There is no rebound and no guarding. Musculoskeletal: She exhibits no edema. Neurological: She is alert and oriented to person, place, and time. Skin: Skin is warm and dry. No erythema. There is pallor. Extremities are pink, warm, and dry. Slight pallor but fair turgor. Psychiatric: She has a normal mood and affect. Her behavior is normal. Nursing note and vitals reviewed. Procedures ED Course ED Course as of Jul 03 2103FriJul 03, [id number] Hemoglobin: (!!) 5.9 [TG] 193 Hematocrit: (!) 19.5 [TG] 1937 Platelets: (!) 845 [TG] 193 Occult Blood, Fecal: (!) Positive [TG] 1937 Creatinine: (!) 1.66 [TG] 193 Potassium: (!) 3.4 [TG] 1937 CO2: (!) 14.0 [TG] 1937 Anion Gap: (!) 14.0 [TG] 2010 D/W Dr. Pablo, accepts to telemetry. [TG] ED Course User Index [TG] Steven Simons PA-C Recent Results (from the past 24 hour(s)) Light Blue Top Collection Time: 07/03/18 4:32 PM Result Value Ref Range Extra Tube hold for add-on Green Top (Gel) Collection Time: 07/03/18 4:32 PM Result Value Ref Range Extra Tube Hold for add-ons. Lavender Top Collection Time: 07/03/18 4:32 PM Result Value Ref Range Extra Tube hold for add-on Gold Top - SST Collection Time: 07/03/18 4:32 PM Result Value Ref Range Extra Tube Hold for add-ons. CBC Auto Differential Collection Time: 07/03/18 4:32 PM Result Value Ref Range WBC 13.72 (H) 3.50 - 10.80 10*3/mm3 RBC 2.20 (L) 3.89 - 5.14 10*6/mm3 Hemoglobin 5.9 (C) 11.5 - 15.5 g/dL Hematocrit 19.5 (L) 34.5 - 44.0 % MCV 88.6 80.0 - 99.0 fL MCH 26.8 (L) 27.0 - 31.0 pg MCHC 30.3 (L) 32.0 - 36.0 g/dL RDW 16.3 (H) 11.3 - 14.5 % RDW-SD 53.0 37.0 - 54.0 fl MPV 8.6 6.0 - 12.0 fL Platelets 845 (H) 150 - 450 10*3/mm3 Neutrophil % 77.3 (H) 41.0 - 71.0 % Lymphocyte % 13.3 (L) 24.0 - 44.0 % Monocyte % 7.9 0.0 - 12.0 % Eosinophil % 1.1 0.0 - 3.0 % Basophil % 0.4 0.0 - 1.0 % Immature Grans % 0.3 0.0 - 0.6 % Neutrophils, Absolute 10.60 (H) 1.50 - 8.30 10*3/mm3 Lymphocytes, Absolute 1.83 0.60 - 4.80 10*3/mm3 Monocytes, Absolute 1.09 (H) 0.00 - 1.00 10*3/mm3 Eosinophils, Absolute 0.15 0.00 - 0.30 10*3/mm3 Basophils, Absolute 0.05 0.00 - 0.20 10*3/mm3 Immature Grans, Absolute 0.04 (H) 0.00 - 0.03 10*3/mm3 Scan Slide Collection Time: 07/03/18 4:32 PM Result Value Ref Range RBC Morphology Normal Normal WBC Morphology Normal Normal Platelet Morphology Normal Normal Comprehensive Metabolic Panel Collection Time: 07/03/18 4:32 PM Result Value Ref Range Glucose 101 (H) 70 - 100 mg/dL BUN 20 9 - 23 mg/dL Creatinine 1.66 (H) 0.60 - 1.30 mg/dL Sodium 131 (L) 132 - 146 mmol/L Potassium 3.4 (L) 3.5 - 5.5 mmol/L Chloride 103 99 - 109 mmol/L CO2 14.0 (L) 20.0 - 31.0 mmol/L Calcium 8.9 8.7 - 10.4 mg/dL Total Protein 6.2 5.7 - 8.2 g/dL Albumin 4.00 3.20 - 4.80 g/dL ALT (SGPT) 18 7 - 40 U/L AST (SGOT) 15 0 - 33 U/L Alkaline Phosphatase 110 (H) 25 - 100 U/L Total Bilirubin 0.2 (L) 0.3 - 1.2 mg/dL eGFR Non Amer 34 (L) >60 mL/min/1.73 Globulin 2.2 gm/dL A/G Ratio 1.8 1.5 - 2.5 g/dL BUN/Creatinine Ratio 12.0 7.0 - 25.0 Anion Gap 14.0 (H) 3.0 - 11.0 mmol/L Protime-INR Collection Time: 07/03/18 4:32 PM Result Value Ref Range Protime 11.3 9.6 - 11.5 Seconds INR 1.08 0.91 - 1.09 aPTT Collection Time: 07/03/18 4:32 PM Result Value Ref Range PTT 43.9 (H) 24.0 - 31.0 seconds Type & Screen Collection Time: 07/03/18 6:42 PM Result Value Ref Range ABO Type O RH type Positive Antibody Screen Negative T&S Expiration Date 07/06/2018 11:59:59 PM Urinalysis With Microscopic If Indicated (No Culture) - Urine, Clean Catch Collection Time: 07/03/18 6:52 PM Result Value Ref Range Color, UA Yellow Yellow, Straw Appearance, UA Clear Clear pH, UA <=5.0 5.0 - 8.0 Specific [place], UA 1.010 1.001 - 1.030 Glucose, UA Negative Negative Ketones, UA Negative Negative Bilirubin, UA Negative Negative Blood, UA Small (1+) (A) Negative Protein, UA Negative Negative Leuk Esterase, UA Negative Negative Nitrite, UA Negative Negative Urobilinogen, UA 0.2 E.U./dL 0.2 - 1.0 E.U./dL Urinalysis, Microscopic Only - Urine, Clean Catch Collection Time: 07/03/18 6:52 PM Result Value Ref Range RBC, UA 0-2 None Seen, 0-2 /HPF WBC, UA None Seen None Seen, 0-2 /HPF Bacteria, UA None Seen None Seen, Trace /HPF Squamous Epithelial Cells, UA 0-2 None Seen, 0-2 /HPF Hyaline Casts, UA 0-6 0 - 6 /LPF Methodology Automated Microscopy POCT Occult Blood, stool Collection Time: 07/03/18 7:05 PM Result Value Ref Range Fecal Occult Blood Positive (A) Negative Lot Number [id number] Expiration Date 06/23 DEVELOPER LOT NUMBER [id number] DEVELOPER EXPIRATION DATE 06/23 Positive Control Positive Positive Negative Control Negative Negative ABO RH Specimen Verification Collection Time: 07/03/18 7:32 PM Result Value Ref Range ABO Type O RH type Positive Prepare RBC, 2 Units Collection Time: 07/03/18 8:38 PM Result Value Ref Range Product Code N8191V67 Unit Number [id number] UNIT ABO O UNIT RH POS Dispense Status IS Blood Type OPOS Blood Expiration Date Blood Type Barcode 5100 Product Code L2336Y14 Unit Number [id number] UNIT ABO O UNIT RH POS Dispense Status XM Blood Type OPOS Blood Expiration Date Blood Type Barcode Note: In addition to lab results from this visit, the labs listed above may include labs taken at another facility or during a different encounter within the last 24 hours. Please correlate lab timeswith ED admission and discharge times for further clarification of the services performed during this visit. CT Abdomen Pelvis Without Contrast Final Result 1. No acute abnormality. Specifically, no radiographic findings to explain gastrointestinal bleed, noting limited evaluation of the bowel mucosa secondary to noncontrast technique. 2. Anterior left hip subcutaneous 1.3 x 1.3 x 11.1 cm air and fluid collection running deep to the course of skin indio, within normal limits for recent operation. No significant drainable fluid component. THIS DOCUMENT HAS BEEN ELECTRONICALLY SIGNED BY DANA THAKUR MD XR Chest PA & Lateral Final Result Bilateral perihilar interstitial markings without lobar consolidation. Consider bronchitis or viral pneumonitis. THIS DOCUMENT HAS BEEN ELECTRONICALLY SIGNED BY DANA THAKUR MD Vitals: 07/03/18 1545 07/03/18 1900 07/03/18200807/03/182049 BP: 94/54 138/75 BP Location: Left arm Patient Position: Sitting Pulse: 104 95 92 91 Resp: Temp: 98 ??F (36.7 ??C) 99.2 ??F (37.3 ??C) TempSrc: Oral SpO2: 99% 100% 92% 100% Weight: 88.9 kg (196 lb) Height: 172.7 cm (68 ) Medications sodium chloride 0.9 % flush 10 mL (not administered) sodium chloride 0.9 % infusion (0 mL/hr Intravenous Hold 07/03/181948) pantoprazole (PROTONIX) injection 40 mg (40 mg Intravenous Given 07/03/182026) sodium chloride 0.9 % bolus 1,000 mL (1,000 mL Intravenous New Bag 07/03/181845) ECG/EMG Results (last 24 hours) No results found for the last [address] [facility] Final diagnoses: Acute upper GI bleed Acute blood loss anemia History of osteomyelitis Documentation assistance provided by tamara Khanna. Information recorded by the scribe was done at my direction and has been verified and validated by me. Abby Khanna 07/03/181845 Steven Simons PA-C 07/03/182102 Cosigned by Shaheen Lackey MD at 07/04/2018 6:27 PM EST Associated attestation - Shaheen Lackey MD - 07/04/2018 6:27 PM EST For this patient encounter, I reviewed the BUILDING CONTRACTOR or PA documentation, treatment plan, and medical decision making. Shaheen Lackey MD 07/04/2018 6:26 PM documented in this encounter Plan of Treatment Not on file documented as of this encounter Procedures Procedure Name Priority Date/Time Associated Diagnosis Comments PREPARE RBC STAT 07/07/2018 1:[address] ABDOMEN PELVIS WO CONTRAST STAT 07/03/2018 8:01 PM EST ABORH 2ND SPECIMEN VERIFICATION STAT 07/03/2018 7:32 PM EST XR CHEST PA AND LATERAL STAT 07/03/2018 7:14 PM EST POCT OCCULT BLOOD STOOL STAT 07/03/2018 7:05 PM EST ECG 12-LEAD STAT 07/03/2018 6:55 PM EST URINALYSIS, MICROSCOPIC ONLY STAT 07/03/2018 6:52 PM EST URINALYSIS W/ MICROSCOPIC IF INDICATED (NO CULTURE) STAT 07/03/2018 6:52 PM EST TYPE AND SCREEN STAT 07/03/2018 6:42 PM EST GOLD TOP - SST STAT 07/03/2018 4:32 PM EST DK GREEN TOP STAT 07/03/2018 4:32 PM EST SCAN SLIDE STAT 07/03/2018 4:32 PM EST CBC WITH AUTO DIFFERENTIAL STAT 07/03/2018 4:32 PM EST LAVENDER TOP STAT 07/03/2018 4:32 PM EST LIGHT BLUE TOP STAT 07/03/2018 4:32 PM EST RAINBOW DRAW STAT 07/03/2018 4:32 PM EST APTT STAT 07/03/2018 4:32 PM EST PROTIME-INR STAT 07/03/2018 4:32 PM EST CBC AND DIFFERENTIAL STAT 07/03/2018 4:32 PM EST COMPREHENSIVE METABOLIC PANEL STAT 07/03/2018 4:32 PM EST SCANNED - LABS 07/03/2018 documented in this encounter Results * Prepare RBC, 2 Units (07/07/2018 1:28 AM EST) Product Code [id number] [facility] Unit Number [id number] [facility] LABORATORY UNIT RH POS [facility] LAB[facility]ORY Dispense Status PT [facility] Blood Type OPOS [facility] Blood Expiration Date [facility] Blood Type Barcode 5100 [facility] Product Code [id number] [facility] Unit [facility] [id number] [facility] A[facility] O [facility] LABORAT[facility] UNIT RH POS [facility] Dispense Status RE [facility] Blood Type OPOS [facility] Blood Expiration Date [facility] Blood Type Barcode [facility] Other Topography unknown / Unknown 07/03/2018 7:06 PM EST Steven Simons PA-C BLOOD BANK PRODUCT ORDER NICOLE Edited Result - Final [facility]
[address] [place] [address], * Transfuse RBC (07/03/2018 11:23 PM EST) Steven Domenico Simons PA-C BLOOD TRANSFUSION ORDERA BLES Final Result * CT Abdomen Pelvis Without Contrast (07/03/2018 8:01 PM EST) Anatomical Region Laterality Modality Abdomen, Pelvis N/A Computed Tomogra phy 07/03/2018 7:57 PM EST Impressions 07/03/2018 8:43 PM EST 1. ??No acute abnormality. ??Specifically, no radiographic findings to explain gastrointestinal bleed, noting limited evaluation of the bowel mucosa secondary to noncontrast technique. 2. ??Anterior left hip subcutaneous 1.3 x 1.3 x 11.1 cm air and fluid collection running deep to the course of skin indio, within normal limits for recent operation. ??No significant drainable fluid component. THIS DOCUMENT HAS BEEN ELECTRONICALLY SIGNED BY DANA THAKUR MD Narrative 07/03/2018 8:43 PM EST EXAM: ??CT Abdomen and Pelvis Without Intravenous Contrast CLINICAL HISTORY: ??43 years old, female; Pain; Other: Left hip pain related to surgery done in april 2018 with subsequent procedures because of infection; Prior surgery; Surgery date: 1-6 months; Additional info: Gi bleed TECHNIQUE: ??Axial computed tomography images of the abdomen and pelvis without intravenous contrast. ??All CT scans at this facility use at least one of these dose optimization techniques: automated exposure control; mA and/or kV adjustment per patient size (includes targeted exams where dose is matched to clinical indication); or iterative reconstruction. ??Coronal and sagittal reformatted images were created and reviewed. COMPARISON: ??No relevant prior studies available. FINDINGS: ??Lung bases: ??Left lung base calcified pulmonary granuloma. ABDOMEN: ??Liver: ??Unremarkable. ??Gallbladder and bile ducts: ??Unremarkable. ??No calcified stones. ??No ductal dilation. ??Pancreas: ??Unremarkable. ??No ductal dilation. ??Spleen: ??The spleen demonstrates punctate calcifications, consistent with remote granulomatous organism exposure. ??Adrenals: ??Unremarkable. ??No mass. ??Kidneys and ureters: ??Unremarkable. ??No obstructing stones. ??No hydronephrosis. ??Stomach and bowel: ??Unremarkable. ??No obstruction. ??No mucosal thickening. PELVIS: ??Appendix: ??No findings to suggest acute appendicitis. ??Bladder: ??Unremarkable. ??No stones. ??Reproductive: ??Bilateral adnexal surgical clips. ABDOMEN and PELVIS: ??Intraperitoneal space: ??Unremarkable. ??No free air. ??No significant fluid collection. ??Bones/joints: ??Left hip prosthesis. ??No acute fracture. ??No dislocation. ??Soft tissues: ??Anterior left hip subcutaneous 1.3 x 1.3 x 11.1 cm air and fluid collection running along the course of skin indio, within normal limits for recent operation. ??No significant drainable fluid component. ??Vasculature: ??Unremarkable. ??No abdominal aortic aneurysm. ??Lymph nodes: ??Unremarkable. ??No enlarged lymph nodes. Procedure Note Dana Thakur MD - 07/03/2018 EXAM: CT Abdomen and Pelvis Without Intravenous Contrast CLINICAL HISTORY: 43 years old, female; Pain; Other: Left hip pain related to surgery donein april 2018 with subsequent procedures because of infection; Priorsurgery; Surgery date: 1-6 months; Additional info: Gi bleed TECHNIQUE: Axial computed tomography images of the abdomen and pelvis without intravenous contrast. All CT scans at this facility use at least one ofthese dose optimization techniques: automated exposure control; mA and/or kV adjustment per patient size (includes targeted exams where dose is matchedto clinical indication); or iterative reconstruction. Coronal and sagittal reformatted images were created and reviewed. COMPARISON: No relevant prior studies available. FINDINGS: Lung bases: Left lung base calcified pulmonary granuloma. ABDOMEN: Liver: Unremarkable. Gallbladder and bile ducts: Unremarkable. No calcified stones. Noductal dilation. Pancreas: Unremarkable. No ductal dilation. Spleen: The spleen demonstrates punctate calcifications, consistentwith remote granulomatous organism exposure. Adrenals: Unremarkable. No mass. Kidneys and ureters: Unremarkable. No obstructing stones. No hydronephrosis. Stomach and bowel: Unremarkable. No obstruction. No mucosalthickening. PELVIS: Appendix: No findings to suggest acute appendicitis. Bladder: Unremarkable. No stones. Reproductive: Bilateral adnexal surgical clips. ABDOMEN and PELVIS: Intraperitoneal space: Unremarkable. No free air. No significantfluid collection. Bones/joints: Left hip prosthesis. No acute fracture. Nodislocation. Soft tissues: Anterior left hip subcutaneous 1.3 x 1.3 x 11.1 cm airand fluid collection running along the course of skin indio, within normallimits for recent operation. No significant drainable fluid component. Vasculature: Unremarkable. No abdominal aortic aneurysm. Lymph nodes: Unremarkable. No enlarged lymph nodes. IMPRESSION: 1. No acute abnormality. Specifically, no radiographic findings toexplain gastrointestinal bleed, noting limited evaluation of the bowel mucosasecondary to noncontrast technique. 2. Anterior left hip subcutaneous 1.3 x 1.3 x 11.1 cm air and fluidcollection running deep to the course of skin indio, within normal limits forrecent operation. No significant drainable fluid component. THIS DOCUMENT HAS BEEN ELECTRONICALLY SIGNED BY DANA THAKUR MD Steven Simons PA-C IM CT ORDERABLES Final Result * ABO RH Specimen Verification (07/03/2018 7:32 PM EST) ABO Type O 07/03/2018 7:54 PM EST [facility]ORAT[facility] RH type Positive 07/03/2018 7:54 PM EST [facility] Blood Venipuncture / Unknown 07/03/2018 7:32 PM EST 07/03/2018 7:34 PM EST Shaheen Lackey MD BLOOD BANK TEST ORDERABLES Fin al Result [facility]
[address] [place] [address], * XR Chest PA & Lateral (07/03/2018 7:14 PM EST) Anatomical Region Laterality Modality Body, Chest N/A Radiographic Romana ging 07/03/2018 6:58 PM EST Impressions 07/03/2018 7:42 PM EST ??Bilateral perihilar interstitial markings without lobar consolidation. ?? Consider bronchitis or viral pneumonitis. THIS DOCUMENT HAS BEEN ELECTRONICALLY SIGNED BY DANA THAKUR MD Narrative 07/03/2018 7:42 PM EST EXAM: ??XR Chest, 2 Views CLINICAL HISTORY: ??43 years old, female; Signs and symptoms; Other: Anemia TECHNIQUE: ??Frontal and lateral views of the chest. COMPARISON: ??No relevant prior studies available. FINDINGS: ??Lungs: ??Bilateral perihilar interstitial markings without lobar consolidation. ??Pleural space: ??Unremarkable. ??No pneumothorax. ??Heart: ??Unremarkable. ??No cardiomegaly. ??Mediastinum: ??Unremarkable. ??Bones/joints: ??Unremarkable. Procedure Note Dana Thakur MD - 07/03/2018 EXAM: XR Chest, 2 Views CLINICAL HISTORY: 43 years old, female; Signs and symptoms; Other: Anemia TECHNIQUE: Frontal and lateral views of the chest. COMPARISON: No relevant prior studies available. FINDINGS: Lungs: Bilateral perihilar interstitial markings without lobarconsolidation. Pleural space: Unremarkable. No pneumothorax. Heart: Unremarkable. No cardiomegaly. Mediastinum: Unremarkable. Bones/joints: Unremarkable. IMPRESSION: Bilateral perihilar interstitial markings without lobar consolidation. Consider bronchitis or viral pneumonitis. THIS DOCUMENT HAS BEEN ELECTRONICALLY SIGNED BY DNAA THAKUR MD Steven Simons PA-C IMG DIAGNOSTIC IMAGING O RDERABLES Final Result * (ABNORMAL) POCT Occult Blood, stool (07/03/2018 7:05 PM EST) Fecal Occult Blood Positive(A) Negative [facility] Lot Number [id number] [facility] Expiration Date 06/23 [facility] DEVELOPER [id number] [facility] DEVELOPER EXPIRATION DATE 06/23 [facility] Positive Control Positive Positive [facility] Negative Control Negative Negative [facility] Stool Specimen from rectum / Unknown 07/03/2018 7:05 PM EST Shaheen Lackey MD POINT OF CARE TEST ORDERABLES Final Result [facility]
[address] [place] [address], * ECG 12 Lead (07/03/2018 6:55 PM EST) 07/03/2018 6:55 PM EST 07/07/2018 10:32 AM EST Narrative ECG - 07/07/2018 10:32 AM EST Test Reason : anemia Blood Pressure : / mmHG Vent. Rate : 094 BPM ? Atrial Rate : 094 BPM ?? P-R Int : 138 ms ?QRS Dur : 092 ms ?QT Int : 376 ms ? P-R-T Axes : 068 024 035 degrees ?? QTc Int : 470 ms Poor data quality, interpretation may be adversely affected Normal sinus rhythm Nonspecific ST abnormality Abnormal ECG No previous ECGs available Confirmed by JOE ??SHAHEEN BRUNNER ([id number]) on 07/07/2018 10:32:47 AM Referred By: ??ED ? Confirmed By:SHAHEEN LACKEY ?? Procedure Note Shaheen Lackey MD - 07/07/2018 Test Reason : anemia Blood Pressure : / mmHG Vent. Rate : 094 BPM Atrial Rate : 094 BPM P-R Int : 138 ms QRS Dur : 092 ms QT Int : 376 ms P-R-T Axes : 068 024 035 degrees QTc Int : 470 ms Poor data quality, interpretation may be adversely affected Normal sinus rhythm Nonspecific ST abnormality Abnormal ECG No previous ECGs available Confirmed by SHAHEEN LACKEY MD ([id number]) on 07/07/2018 10:32:47 AM Referred By: ADRSHAN BRUNNER Confirmed By:SHAHEEN LACKEY MD Steven BYRD-C ECG ORDERABLES Final Re sult ECG * Urinalysis, Microscopic Only - Urine, Clean Catch (07/03/2018 6:52 PM EST) RBC, UA 0-2 None Seen, 0-2 /HPF 07/03/2018 7:20 PM EST [facility] WBC, UA None Seen None Seen, 0-2 /HPF 07/03/2018 7:20 PM EST [facility] Bacteria, UA None Seen None Seen, Trace /HPF 07/03/2018 7:20 PM EST [facility] Squamous Epithelial Cells, UA 0-2 None Seen, 0-2 /HPF 07/03/2018 7:20 PM EST [facility] Hyaline Casts, UA 0-6 0 - 6 /LPF 07/03/2018 7:20 PM EST [facility] Methodology Automated Microscopy 07/03/2018 7:20 PM [facility] Urine Urine specimen collection, clean catch / Unknown Collection / Unknown 07/03/2018 6:52 PM EST 07/03/2018 7:05 PM EST Steven Domenico Simons PA-C URINE ORDERABLES Final R esult [facility]
[address] [place] [address], * (ABNORMAL) Urinalysis With Microscopic If Indicated (No Culture) - Urine, Clean Catch (07/03/2018 6:52 PM EST) Color, UA Yellow Yellow, Straw 07/03/2018 7:20 PM EST [facility] Appearance, UA Clear Clear 07/03/2018 7:20 PM EST [facility] pH, UA <=5.0 5.0 - 8.0 07/03/2018 7:20 PM EST [facility] Specific [place], UA 1.010 1.001 - 1.030 07/03/2018 7:20 PM EST [facility] Glucose, UA Negative Negative 07/03/2018 7:20 PM EST [facility] Ketones, UA Negative Negative 07/03/2018 7:20 PM EST [facility] Bilirubin, UA Negative Negative 07/03/2018 7:20 PM EST [facility] Blood, UA Small (1+)(A) Negative 07/03/2018 7:20 PM EST [facility] Protein, UA Negative Negative 07/03/2018 7:20 PM EST [facility] Leuk Esterase, UA Negative Negative 07/03/2018 7:20 PM EST [facility] Nitrite, UA Negative Negative 07/03/2018 7:20 PM EST [facility] Urobilinogen, UA 0.2 E.U./dL 0.2 - 1.0 E.U./dL 07/03/2018 7:20 PM EST [facility] Urine Urine specimen collection, clean catch / Unknown Collection / Unknown 07/03/2018 6:52 PM EST 07/03/2018 7:05 PM EST Steven Simons PA-C URINE ORDERABLES Final R esult [facility]
[address] [place] [address], * Type & Screen (07/03/2018 6:42 PM EST) ABO Type O 07/03/2018 7:47 PM EST [facility]ORAT[facility] RH type Positive 07/03/2018 7:47 PM EST [facility] Antibody Screen Negative 07/03/2018 7:47 PM EST [facility] T&S Expiration Date 07/06/2018 11:59:59 PM 07/03/2018 7:47 PM EST [facility] Blood Venipuncture / Unknown 07/03/2018 6:42 PM EST 07/03/2018 7:06 PM EST Steven BYRD-C BLOOD BANK TEST ORDERABL ES Edited Result - Final [facility]
[address] [place] [address], * (ABNORMAL) aPTT (07/03/2018 4:32 PM EST) PTT 43.9(H) 24.0 - 31.0 seconds 07/03/2018 6:58 PM EST [facility] Blood Venipuncture / Unknown 07/03/2018 4:32 PM EST 07/03/2018 4:39 PM EST Narrative [facility] - 07/03/2018 6:58 PM EST PTT = The equivalent PTT values for the therapeutic range of heparin levels at 0.3 to 0.5 U/ml are 55 to 70 seconds. Steven BYRD-C LAB BLOOD ORDERABLES Fin al Result [facility]
[address] [place] [address], * Protime-INR (07/03/2018 4:32 PM EST) Protime 11.3 9.6 - 11.5 Seconds 07/03/2018 6:58 PM EST [facility] INR 1.08 0.91 - 1.09 07/03/2018 6:58 PM EST [facility] Blood Venipuncture / Unknown 07/03/2018 4:32 PM EST 07/03/2018 4:39 PM EST Steven Simons PA-C LAB BLOOD ORDERABLES Fin al Result [facility]
[address] [place] [address], * (ABNORMAL) Comprehensive Metabolic Panel (07/03/2018 4:32 PM EST) Pathologist [facility] Glucose 101(H) 70 - 100 mg/dL 07/03/2018 7:31 PM [facility] BUN 20 9 - 23 mg/dL 07/03/2018 7:31 PM [facility] Creatinine 1.66(H) 0.60 - 1.30 mg/dL 07/03/2018 7:31 PM [facility] Sodium 131(L) 132 - 146 mmol/L 07/03/2018 7:31 PM [facility] Potassium 3.4(L) 3.5 - 5.5 mmol/L 07/03/2018 7:31 PM [facility] Chloride 103 99 - 109 mmol/L 07/03/2018 7:31 PM [facility] CO2 14.0(L) 20.0 - 31.0 mmol/L 07/03/2018 7:31 PM [facility] Calcium 8.9 8.7 - 10.4 mg/dL 07/03/2018 7:31 PM [facility] Total Protein 6.2 5.7 - 8.2 g/dL 07/03/2018 7:31 PM [facility] Albumin 4.00 3.20 - 4.80 g/dL 07/03/2018 7:31 PM [facility] ALT (SGPT) 18 7 - 40 U/L 07/03/2018 7:31 PM [facility] AST (SGOT) 15 0 - 33 U/L 07/03/2018 7:31 PM [facility] Alkaline Phosphatase 110(H) 25 - 100 U/L 07/03/2018 7:31 PM [facility] Total Bilirubin 0.2(L) 0.3 - 1.2 mg/dL 07/03/2018 7:31 PM [facility] eGFR Non Amer 34(L) >60 mL/min/1.7 3 07/03/2018 7:31 PM [facility] Globulin 2.2 gm/dL 07/03/2018 7:31 PM [facility] A/G Ratio 1.8 1.5 - 2.5 g/dL 07/03/2018 7:31 PM [facility] BUN/Creatinine Ratio 12.0 7.0 - 25.0 07/03/2018 7:31 PM [facility] Anion Gap 14.0(H) 3.0 - 11.0 mmol/L 07/03/2018 7:31 PM [facility] Blood Venipuncture / Unknown 07/03/2018 4:32 PM EST 07/03/2018 4:40 PM EST [facility] - 07/03/2018 7:31 PM [facility] National Kidney Foundation Guidelines Stage ? Description ?GFR 1 ? Normal or High ? 90+ 2 ? Mild decrease ?60-89 3 ? Moderate decrease ??30-59 4 ? Severe decrease ?15-29 5 ? Kidney failure ? <15 The MDRD GFR formula is only valid for adults with stable renal function between ages 18 and 70. us Steven Domenico Simons PA-C LAB BLOOD ORDERABLES Fin al Result Performing Organization Address City/[facility]/ZIP Co de Phone Number [facility]
[address] [place] [address], * Scan Slide (07/03/2018 4:32 PM EST) Pathologist [facility] RBC Morphology Normal Normal 07/03/2018 6:24 PM EST [facility] WBC Morphology Normal Normal 07/03/2018 6:24 PM EST [facility] Platelet Morphology Normal Normal 07/03/2018 6:24 PM EST [facility] Blood Venipuncture / Unknown 07/03/2018 4:32 PM EST 07/03/2018 4:39 PM EST [facility] Samba Venturese PA-C LAB BLOOD ORDERABLES Fin al Result Performing Organization Address [facility] Co de Phone Number [facility]
[address] [place] [address], * (ABNORMAL) CBC Auto Differential (07/03/2018 4:32 PM EST) Pathologist [facility] WBC 13.72(H) 3.50 - 10.80 10*3/mm3 07/03/2018 6:24 PM [facility] RBC 2.20(L) 3.89 - 5.14 10*6/mm3 07/03/2018 6:24 PM [facility] Hemoglobin 5.9(LL) 11.5 - 15.5 g/dL 07/03/2018 6:24 PM [facility] Hematocrit 19.5(L) 34.5 - 44.0 % 07/03/2018 6:24 PM [facility] MCV 88.6 80.0 - 99.0 fL 07/03/2018 6:24 PM [facility] MCH 26.8(L) 27.0 - 31.0 pg 07/03/2018 6:24 PM [facility] MCHC 30.3(L) 32.0 - 36.0 g/dL 07/03/2018 6:24 PM [facility] RDW 16.3(H) 11.3 - 14.5 % 07/03/2018 6:24 PM [facility] RDW-SD 53.0 37.0 - 54.0 fl 07/03/2018 6:24 PM [facility] MPV 8.6 6.0 - 12.0 fL 07/03/2018 6:24 PM [facility] Platelets 845(H) 150 - 450 10*3/mm3 07/03/2018 6:24 PM [facility] Neutrophil % 77.3(H) 41.0 - 71.0 % 07/03/2018 6:24 PM [facility] Lymphocyte % 13.3(L) 24.0 - 44.0 % 07/03/2018 6:24 PM [facility] Monocyte % 7.9 0.0 - 12.0 % 07/03/2018 6:24 PM [facility] Eosinophil % 1.1 0.0 - 3.0 % 07/03/2018 6:24 PM [facility] Basophil % 0.4 0.0 - 1.0 % 07/03/2018 6:24 PM [facility] Immature Grans % 0.3 0.0 - 0.6 % 07/03/2018 6:24 PM [facility] Neutrophils, Absolute 10.60(H) 1.50 - 8.30 10*3/mm3 07/03/2018 6:24 PM [facility] Lymphocytes, Absolute 1.83 0.60 - 4.80 10*3/mm3 07/03/2018 6:24 PM [facility] Monocytes, Absolute 1.09(H) 0.00 - 1.00 10*3/mm3 07/03/2018 6:24 PM [facility] Eosinophils, Absolute 0.15 0.00 - 0.30 10*3/mm3 07/03/2018 6:24 PM [facility] Basophils, Absolute 0.05 0.00 - 0.20 10*3/mm3 07/03/2018 6:24 PM EST [facility] Immature Grans, Absolute 0.04(H) 0.00 - 0.03 10*3/mm3 07/03/2018 6:24 PM EST [facility] Blood Venipuncture / Unknown 07/03/2018 4:32 PM EST 07/03/2018 4:39 PM EST Steven Simons PA-C LAB BLOOD ORDERABLES Fin al Result [facility]
[address] [place] [address], * Gold Top - SST (07/03/2018 4:32 PM EST) Extra Tube Hold for add-ons. 07/03/2018 5:45 PM EST [facility] Comment:Auto resulted. Blood Venipuncture / Unknown 07/03/2018 4:32 PM EST 07/03/2018 4:40 PM EST Shaheen Lackey MD LAB BLOOD ORDER ONLY Final Res ult Performing Organization Address City/[facility]/ZIP Co de Phone Number [facility]
[address] [place] [address], * Lavender Top (07/03/2018 4:32 PM EST) Extra Tube hold for add-on 07/03/2018 5:45 PM EST [facility] Comment:Auto resulted Blood Venipuncture / Unknown 07/03/2018 4:32 PM EST 07/03/2018 4:39 PM EST Shaheen Lackey MD LAB BLOOD ORDER ONLY Final Res ult Performing Organization Address City/[facility]/ZIP Co de Phone Number [facility]
[address] [place] [address], * Green Top (Gel) (07/03/2018 4:32 PM EST) Extra Tube Hold for add-ons. 07/03/2018 5:45 PM EST [facility] Comment:Auto resulted. Blood Venipuncture / Unknown 07/03/2018 4:32 PM EST 07/03/2018 4:40 PM EST us Shaehen Lackey MD LAB BLOOD ORDER ONLY Final Res ult Performing Organization Address [facility] Co de Phone Number [facility]
[address] [place] [address], * Light Blue Top (07/03/2018 4:32 PM EST) Extra Tube hold for add-on 07/03/2018 5:45 PM EST [facility] Comment:Auto resulted Blood Venipuncture / Unknown 07/03/2018 4:32 PM EST 07/03/2018 4:39 PM EST us Shaheen Lackey MD LAB BLOOD ORDER ONLY Final Res ult Performing Organization Address [facility] de Phone Number [facility]
[address] [place] [address], * SCANNED - LABS (07/03/2018) [facility] LAB BLOOD ORDERABLES Final Re sult documented in this encounter Visit Diagnoses Diagnosis Acute upper GI bleed- Primary Unspecified, hemorrhage of gastrointestinal tract Acute blood loss anemia Acute posthemorrhagic anemia History of osteomyelitis Personal history of other musculoskeletal disorders Acute blood loss anemia Acute posthemorrhagic anemia documented in this encounter Admitting Diagnoses Diagnosis Acute blood loss anemia Acute posthemorrhagic anemia documented in this encounter Administered Medications Inactive Administered Medications - up to 3 most recent administrations Medication Order MAR Action Action Date Dose Rate Site heparin flush (porcine) 100 UNIT/ML injection 300 Units 300 Units, Intravenous, Once, On Fri07/03/18 at 2319, For 1 dose Given 07/03/2018 11:24 PM EST 300 Units pantoprazole (PROTONIX) injection 40 mg 40 mg, Intravenous, 2 Times Daily, First dose on Fri07/03/18 at 2100, Indications: GI BleedIndications:GI Bleed Given 07/03/2018 8:27 PM EST 40 mg sodium chloride 0.9 % bolus 1,000 mL 1,000 mL, Intravenous, at 1,000 mL/hr, Administer over 1 Hours, Once, On Fri07/03/18 at 1848, For 1 dose New Bag 07/03/2018 6:46 PM EST 1,000 mL 1000 mL/hr sodium chloride 0.9 % flush 10 mL 10 mL, Intravenous, As Needed, Line Care, Starting on Fri07/03/18 at 1737 sodium chloride 0.9 % infusion 125 mL/hr, Intravenous, Continuous, Starting on Fri07/03/18 at 1843 documented in this encounter Active and Recently Administered Medications Times are shown in EST. Scheduled Medication Order 07/01/2018 07/02/2018 07/03/2018 heparin flush (porcine) 100 UNIT/ML injection 300 Units (COMPLETED) 300 Units, Intravenous, Once, On Fri07/03/18 at 2319, For 1 dose 2324 (Given - Provid er: Oscar Calloway RN) pantoprazole (PROTONIX) injection 40 mg 40 mg, Intravenous, 2 Times Daily, First dose on Fri07/03/18 at 2100, Indications: GI Bleed 2026 (Given - Provid er: Oscar Calloway RN) sodium chloride 0.9 % bolus 1,000 mL (COMPLETED) 1,000 mL, Intravenous, at 1,000 mL/hr, Administer over 1 Hours, Once, On Fri07/03/18 at 1848, For 1 dose 1846 (New Bag - Prov ider: Oscar Calloway RN)2134 (Stopped - Provider: Oscar Calloway RN) Continuous Medication Order 07/01/2018 07/02/2018 07/03/2018 sodium chloride 0.9 % infusion 125 mL/hr, Intravenous, Continuous, Starting on Fri07/03/18 at 1843 1949 (Hold - Provide r: Oscar Calloway RN - Reason: Other) PRN Medication Order 07/01/2018 07/02/2018 07/03/2018 sodium chloride 0.9 % flush 10 mL(Linked Group 1) 10 mL, Intravenous, As Needed, Line Care, Starting on Fri07/03/18 at 1737 Linked Groups Order Group 1: Insert peripheral IV (CANCELED) Once, On Fri07/03/18 at 1738, For 1 occurrence And sodium chloride 0.9 % flush 10 mLJump to med 10 mL, Intravenous, As Needed, Line Care, Starting on Fri07/03/18 at 1737 documented in this encounter Care Teams Hand Plate Stacker Relationship Specialty Start Date End Date Provider, [place] [address] PCP - General 09/16/17 documented as of this encounter
--- OUTSIDE RECORDS SUMMARY | 2024-07-02 10:04 | XMS_ITS | Encounter Summary ---
Author Organization [facility] Address [address] [place] [id number] Care Team Providers Care Medical Practice Assistant Name Role Phone Provider, No Known Primary Care Provider Unavail able Encounter Details Date Type Department Care Team (Late st Contact Info) Description 02/16/2018 Documentation [facility] NURSE NAVIGATOR [address] [place] [address] Day Barragan, RN Social History Tobacco Use Types Packs/Day Years Used Date Smoking Tobacco: Every Day Smokeless Tobacco: Never Comments Unknown Sex and Gender Information Value Date Recorded Sex Assigned at Not on file Legal Sex Female 12:25 PM EDT Gender Identity Not on file Sexual Orientation Not on file documented as of this encounter Progress Notes * Day Barragan, RN - 02/16/2018 10:56 AM EDT Family member of patient requesting that patient be set up for colonoscopy due to the following complaints: rectal bleeding, nausea/vomiting and some dizziness. I called [facility] GI office and talked with Myrna. Myrna said that Dr. Stern had an opening on 02/19/2018 at 7:30. Patient's sister, Yue Macias, notified patient and patient agreed to appointment time/date. Myrna faxed prep information to me and I gave to Yue. Yue in close contact with patient and will hand off to her sister. I also notified Yue that prep will be sent to patient's pharmacy and she was notifying patient to pick pulling machine operator prep from her pharmacy, [facility]. I also talked with Yue and asked her to please let her sister know that she needs someone in her office to check her BP today and may even need to go to her PCP or Urgent Treatment for H/H if the dizziness continued. Yue will relay the message to patient. Gerardo continue to be available to navigate if needed. AG documented in this encounter Plan of Treatment Not on file documented as of this encounter Visit Diagnoses Not on filedocumented in this encounter Care Teams Medical Practice Assistant Relationship Specialty Start Date End Date Provider, [place] [address] PCP - General 09/16/17 documented as of this encounter
--- OUTSIDE RECORDS SUMMARY | 2024-07-02 10:04 | XMS_ITS | Encounter Summary ---
Author Organization [facility] Address [address] [place] [id number] Care Team Providers Care Groundskeeping Maintenance Worker Name Role Phone Provider, No Known Primary Care Provider Unavail able Encounter Details Date Type Department Care Team (Late st Contact Info) Description 02/19/2018 8:30 AM EDT Outside Facility Service [facility] [address] [place] [address] [address] [place] [id number] Navin Stern MD Social History Tobacco Use Types Packs/Day Years [...] Procedure Name Priority Date/Time Associated Diagnosis Comments SCANNED - COLONOSCOPY 02/19/2018 documented in this encounter Results * SCANNED - COLONOSCOPY (02/19/2018) Bautista Freire MD CHART REVIEW TABS Final Res ult documented in this encounter Visit Diagnoses Not on filedocumented in this encounter Care Teams Groundskeeping Maintenance Worker Relationship Specialty Start Date End Date Provider, [place] [address] PCP - General 09/16/17 documented as of this encounter
--- OUTSIDE RECORDS SUMMARY | 2024-07-02 10:04 | XMS_ITS | Encounter Summary ---
Author Organization [facility] Address [address] [place] [address] Care Team Providers Care Brass And Wind Instrument Repairer Name Role Phone Bautista Freire MD Primary Care Provider [phone] Encounter Details Date Type Department Care Team (Latest Contact Info) Description 03/31/2024 Travel Social History Tobacco Use Types Packs/Day [...] plan has been documented for the patient 03/31/2024 11:14 AM EDT documented as of this encounter Care Teams Brass And Wind Instrument Repairer Relationship Specialty [place] [address] [place] [id number] PCP - General 12/15/20 documented as of this encounter
--- OUTSIDE RECORDS SUMMARY | 2024-07-02 10:04 | XMS_ITS | Clinical Summary ---
Author Organization [facility] Address [address] [place] [address] Care Team Providers Care Stem Teacher Name Role Phone Provider, No Known Primary Care Provider Unavail able Allergies Active Allergy Reactions Criticality Noted Date Comments Sulfa Antibiotics Anaphylaxis High 09/16/2017 Medications atenolol (TENORMIN) 100 MG tablet Take 100 mg by mouth Daily. Active furosemide (LASIX) 40 MG tablet Take 40 mg by mouth 2 (Two) Times a Day. Active oxyCODONE-acetam inophen (PERCOCET) 7.5-325 MG per tablet Take 1 tablet by mouth Every 6 (Six) Hours As Needed. Active topiramate (TOPAMAX) 50 MG tablet Take 50 mg by mouth 2 (Two) Times a Day. Active pantoprazole (PROTONIX) 40 MG EC tablet Take 1 tablet by mouth 2 (Two) Times a Day. 30 tablet 07/03/2018 Active Active Problems Problem Noted Date Diagnosed Date Acute blood loss anemia 07/03/2018 Social History Tobacco Use Types Packs/Day Years Used Date Smoking Tobacco: Every Day Smokeless Tobacco: Never Alcohol Use Standard Drinks/Week Comments No 0 (1 standard drink = 0.6 oz pur e alcohol) AUDIT-C Answer Date Recorded Frequency of Alcohol Consumption Never 07/04/2018 Average Number of Drinks Not on file 018 Frequency of Binge Drinking Not on file 08/2017 Abuse Screen Answer Date Recorded Unsafe at Home or Work/School Not on file Feels Threatened by Someone? Not on file 04/2023 Does Anyone Keep You from Co ntacting Others or Doint Things Outside the Home? Not on file 05/12/2023 Physical Sign of Abuse Present Not on file 1 Housing Stability Answer Date Recorded Current Living Arrangements Not on file 04/2023 Potentially Unsafe Housing Conditions Not on janine e 05/12/2023 Family and Community Support Answer Cash e Recorded Help with Day-to-Day Activities Not on file 05/12/2023 Lonely or Isolated Not on file 05/12/2023 Employment Answer Date Recorded Do you want help finding or keeping work or a vesta b? Not on file 05/12/2023 Disabilities Answer Date Recorded Concentrating, Remembering, or Making Decisions Difficulty Not on file 05/12/2023 Doing Errands Independently Difficulty Not on fi le 05/12/2023 Education Answer Date Recorded Help with school or training? Not on file Preferred Language Not on file 05/12/2023 Comments Unknown Sex and Gender Information Value Date Recorded Sex Assigned at Not on file Legal Sex Female 12:25 PM EDT Gender Identity Not on file Sexual Orientation Not on file Last Filed Vital Signs Vital Sign Reading [...] Mass Index 29.8 07/03/2018 3:45 PM EST Plan of Treatment Health Maintenance Due Date Last Done Comments Annual Gynecologic Pelvic and Breast Exam 1975 COLOGUARD 1975 COLON CANCER SCREENING [address] COLONOGRAPHY 1975 FIT Testing (1 year) 1975 Pneumococcal Vaccine 0-64 (1 of 2 - PCV) 1981 TDAP/TD VACCINES (1 - Tdap) 1994 MAMMOGRAM 2015 ANNUAL PHYSICAL 02/16/2018 HEPATITIS C SCREENING 02/16/2018 PAP SMEAR 02/16/2018 FECAL OCCULT BLOOD TEST 07/03/2019 07/03/2018 INFLUENZA VACCINE 02/02/2024 COVID-19 Vaccine ( season) 2024 COLONOSCOPY 02/20/2028 02/19/2018 COLORECTAL CANCER SCREENING 02/20/2028 Procedures Procedure Name Priority Date/Time Associated Diagnosis Comments POCT OCCULT BLOOD STOOL STAT 07/03/2018 7:05 PM EST SCANNED - COLONOSCOPY 02/19/2018 from Last 3 Months or Most Recently Relevant to Health Maintenance Results * (ABNORMAL) POCT Occult Blood, stool (07/03/2018 7:05 PM EST) Fecal Occult Blood Positive(A) Negative [facility] Lot Number [id number] [facility] Expiration Date 06/23 [facility] DEVELOPER LOT NUMBER [id number] [facility] DEVELOPER EXPIRATION DATE 06/23 [facility] Positive Control Positive Positive [facility] Negative Control Negative Negative [facility] Stool Specimen from rectum / Unknown 07/03/2018 7:05 PM EST Shaheen Lackey MD POINT OF CARE TEST ORDERABLES Final Result [facility]
[address] [place] [address], * SCANNED - COLONOSCOPY (02/19/2018) Bautista Freire MD CHART REVIEW TABS Final Res ult from Last 3 Months or Most Recently Relevant to Health Maintenance Insurance [employer] Care Teams Stem Teacher Relationship Specialty Start Date End Date Provider, [place] [address] PCP - General 09/16/17
--- OUTSIDE RECORDS SUMMARY | 2024-07-02 10:04 | XMS_ITS | Clinical Summary ---
Author Organization [facility] Address [address] [place] [address] Care Team Providers Care Ops Manager Name Role Phone Bautista Freire MD Primary Care Provider [phone] Allergies Active Allergy Reactions Criticality Noted Date Comments Oxycodone Hives Medium 07/16/2018 Sulfa Drugs Anaphylaxis High 10/29/2016 Vancomycin Anaphylaxis High 02/26/2018 maria c Pt can take if premedicated with benadryl Encounters * This document contains information received from the source organization and may not represent a complete record from that organization. Date Type Department Care Team Description 05/05/2024 Travel from Last 3 Months Immunizations Name Administration Dates Next Due HepB-CpG 05/05/2024,03/31/2024 Influenza, injectable, MDCK, preservative free, quadrivalent 04/28/2020 Influenza, injectable, quadrivalent, preservativ e free 04/14/2017 Influenza, seasonal, injectable, preservative fr ee 05/05/2024 MMR 05/05/2024,03/31/2024 TD (adult), 2 Lf tetanus tox oid, preservative free, adsorbed 10/11/1998 Tdap 03/31/2024 Social History Tobacco Use Types Packs/Day Years Used Date Smoking Tobacco: Never Assessed Comments Unknown Sex and Gender Information Value Date Recorded Sex Assigned at Not on file Legal Sex Female 8:29 PM EDT Gender Identity Not on file Sexual Orientation Not on file Plan of Treatment Health Maintenance Due Date Last Done Comments Dental Oral Exam 1975 Dental Prophylaxis 1975 Dental X-Ray: Bitewings 1975 Dental X-Ray: Full Mouth 1975 [facility]-Depression Screening 1975 [facility]-/Child/Adol SDOH Screenings 1975 [facility]- SDOH Screenings 1993 [facility]-Adult SDOH Screenings 1993 [facility]-Pap Smear 1996 [facility]-Cervical Cancer Screening 2005 [facility]-HPV/Cotest 2005 CT Colonography 2020 Colonoscopy 2020 FIT-DNA 2020 FIT 2020 FOBT 2020 07/03/2018 Sigmoidoscopy 2020 [facility]-Colorectal Cancer Screening 2020 DAY-XVPDB-12 Vaccine ( - 2023- season) 2024 04/13/2021, 12/08/2020 [facility]-Zoster Vaccines (1 of 2) 2025 [facility]-DTaP,Tdap,and Td Vaccine s (2 - Td or Tdap) 03/31/2034 03/31/2024, 10/11/1998 [facility]-RSV Vaccine: 60+ Years o r (1 - 1-dose 75+ series) 2050 [facility]-Hepatitis B Vaccines Completed 024, 03/31/2024 [facility]-Influenza Vaccine Completed 05/05/2024 , 04/28/2020, 04/14/2017 [facility]-HIB Vaccines Aged Out No longer e ligible based on patient's age to complete this topic [facility]-HPV Vaccines Aged Out No longer e ligible based on patient's age to complete this topic [facility]-Hepatitis A Vaccines Aged Out No longer eligible based on patient's age to complete this topic [facility]-IPV Vaccines Aged Out No longer e ligible based on patient's age to complete this topic [facility]-Pneumococcal Vaccine: Pediatrics (0 to 5 Years) and At-Risk Patients (6 to 64 Years) Aged Out No longer eligible b ased on patient's age to complete this topic [facility]-Rotavirus Vaccines Aged Out No lo nger eligible based on patient's age to complete this topic Insurance Care Teams Ops Manager Relationship Specialty Start Date End Date Bautista Freire MD [address] [place] [id number] PCP - General 12/15/20
[2024-07-02 10:11] LABS: Appearance,Urine CLOUDY (Clear); Bilirubin,Urine Negative (Negative); Blood, Urine TRACE-I (Negative); Color,Urine YELLOW (Yellow); Glucose,Urine (UA) Negative (Negative); Ketones,Urine TRACE (Negative); Leukocyte Esterase,Urine NEGATIVE (Negative); Nitrate,Urine NEGATIVE (Negative); PH,Urine 5.5 (5.0-8.5); Protein,Urine NEGATIVE (Negative); Specific Gravity, Urine 1.015 (1.005-1.030); Urobilinogen,Urine 0.2 EU/dl (0.2)
[2024-07-02 10:24] LABS: Barbiturates Screen,Urine Negative ng/ml (<200); Benzodiazepines Screen,Urine Negative ng/ml (<200)
[2024-07-02 10:25] LABS: Amphetamine/Metha Screen,Urine Negative ng/ml (<1000)
[2024-07-02 10:26] LABS: Methadone Screen,Urine Negative ng/ml (<300)
[2024-07-02 10:27] LABS: Cannabinoid Screen,Urine Negative ng/ml (<50)
[2024-07-02 10:28] LABS: Cocaine Screen,Urine Negative ng/ml (<300)
[2024-07-02 10:29] LABS: Opiate Screen,Urine Negative ng/ml (<300); Phencyclidine Screen,Urine Negative ng/ml (<25)
[2024-07-02 10:50] LABS: Potassium 2.6 mmoL/L (3.5-5.1)
[2024-07-02 13:25] LABS: Blood Urea Nitrogen 20 mg/dl (7-17); Calcium 7.9 mg/dl (8.4-10.2); Chloride 88 mmol/L (98-107); Creatinine Clearance Estimated 94 mL/min (50-200); Estimated Glomerular Filt Rate 53 ml/min (>60); GFR (African American) 64 ML/MIN (>60); Glucose 146 mg/dl (74-100); Magnesium 2.3 mg/dl (1.6-2.3); Sodium 132 mmol/L (136-145)
[2024-07-02 13:32] LABS: Anion Gap 12.2 mEq/L (5-15); Carbon Dioxide 34 mmol/L (22.0-30.0)
[2024-07-02 13:39] LABS: Potassium 2.2 mmoL/L (3.5-5.1)
--- NOTE | 2024-07-02 18:03 | PC.NURSE ---
aox4, tolerated room air t/o shift. CIWA scores have been 0 t/o shift. multiple runs of iv potassium infused today. ambulating to bathroom with standby assist.
[2024-07-02 20:00] LABS: Alanine Aminotransferase 49 U/L (12-78); Albumin Level 3.3 g/dl (3.5-5.0); Albumin/Globulin Ratio 1.4 (1.1-1.8); Alkaline Phosphatase 90 U/L (38-126); Anion Gap 5.6 mEq/L (5-15); Aspartate Amino Transferase 52 U/L (14-36); Blood Urea Nitrogen 18 mg/dl (7-17); Calcium 8.1 mg/dl (8.4-10.2); Carbon Dioxide 36 mmol/L (22.0-30.0); Chloride 93 mmol/L (98-107); Creatinine Clearance Estimated 115 mL/min (50-200); Estimated Glomerular Filt Rate 67 ml/min (>60); GFR (African American) 81 ML/MIN (>60); Globulin 2.3 g/dL (1.3-3.2); Glucose 107 mg/dl (74-100); Sodium 132 mmol/L (136-145); Total Protein,Serum 5.6 g/dl (6.3-8.2)
[2024-07-02 20:03] LABS: Potassium 2.6 mmoL/L (3.5-5.1)
[2024-07-02 20:30] LABS: Magnesium 2.4 mg/dl (1.6-2.3)
[2024-07-02] MEDS: 0.9 % SODIUM CHLORIDE 1000ML 1,000 ML 100 ML IV (23:43)
[2024-07-03] VITALS (7 sets, daily range): BP systolic 113–148; BP diastolic 61–95; PULSE 70–110; RESP 14–20; TEMP 36.5–36.8; O2SAT 93–98; BMI 33.8
[2024-07-03 00:34] LABS: Chloride 96 mmol/L (98-107); Sodium 132 mmol/L (136-145)
[2024-07-03 00:37] LABS: Blood Urea Nitrogen 15 mg/dl (7-17); Creatinine Clearance Estimated 115 mL/min (50-200); Estimated Glomerular Filt Rate 67 ml/min (>60); GFR (African American) 81 ML/MIN (>60); Potassium 2.7 mmoL/L (3.5-5.1)
[2024-07-03 00:38] LABS: Anion Gap 2.7 mEq/L (5-15); Calcium 8.2 mg/dl (8.4-10.2); Carbon Dioxide 36 mmol/L (22.0-30.0); Glucose 108 mg/dl (74-100)
[2024-07-03] MEDS: TRAZODONE 50MG TABLET 50 MG PO ×3 (01:51→21:00)
[2024-07-03] MEDS: KCl 20mEq/100ml 100 ML 50 MEQ IV ×2 (01:52→03:57)
--- NOTE | 2024-07-03 02:14 | EXP.PN ---
Subjective *Date: 07/02/24 *Time: 08:00 Interval history: Patient continues to have significant anxiety/depression regarding life stressors, and eventually opened up to me after hours regarding issues at her workplace. Given diazepam 5 mg to help with sleep. Very interested in inpatient detox program. Exam Data for Last 24 hours Vital signs and Labs for Last 24 Hours: Temp Pulse Resp BP Pulse Ox O2 Del Method 98.2 F 87 16 146/82 H 94 L Room Air 07/03/24 00:00 07/03/24 00:00 07/03/24 00:00 07/03/24 00:00 07/03/24 00:00 07/03/24 00:00 Laboratory Results - last 24 hr 07/02/24 01:00: Urine Color Yellow, Urine Appearance Cloudy, Urine pH 5.5, Ur Specific [place] 1.015, Urine Glucose (UA) Negative, Urine Ketones Trace, Urine Bilirubin Negative, Urine Urobilinogen 0.2, Urine Opiates Screen Negative, Urine Methadone Screen Negative, Ur Barbituates Screen Negative, Ur Phencyclidine Scrn Negative, Ur Amphetamines Screen Negative, U Benzodiazepines Scrn Negative, Urine Cocaine Screen Negative, U Marijuana (THC) Screen Negative 07/02/24 06:20: WBC 8.9 D, RBC 4.46, Hgb 14.0 D, Hct 39.1, MCV 87.6, MCH 31.5 H, MCHC 35.9 H, RDW 14.9, Plt Count 322, MPV 7.7, Neut % (Auto) 63.5, Lymph % (Auto) 25.0, [place] % (Auto) 10.2 H, Eos % (Auto) 0.7, Baso % (Auto) 0.7, Neut # (Auto) 5.7, Lymph # (Auto) 2.2, [place] # (Auto) 0.9, Eos # (Auto) 0.1, Baso # (Auto) 0.1, Sodium 131 L, Potassium 2.0 L*, Chloride 82 L, Carbon Dioxide 39 H, Anion Gap 12.0, BUN 20 H, Creatinine 1.20 H, Estimated Creat Clear 86, Estimated GFR 48 L, Est GFR ( Amer) 58 L D, Glucose 119 H D, Calcium 8.3 L, Magnesium 2.3 D 07/02/24 10:20: Potassium 2.6 L* D 07/02/24 13:04: Sodium 132 L, Potassium 2.2 L*, Chloride 88 L, Carbon Dioxide 34 H, Anion Gap 12.2, BUN 20 H, Creatinine 1.10 H, Estimated Creat Clear 94, Estimated GFR 53 L, Est GFR ( Amer) 64, Glucose 146 H D, Calcium 7.9 L, Magnesium 2.3 07/02/24 19:40: Sodium 132 L, Potassium 2.6 L*, Chloride 93 L, Carbon Dioxide 36 H, Anion Gap 5.6, BUN 18 H, Creatinine 0.90, Estimated Creat Clear 115, Estimated GFR 67, Est GFR ( Amer) 81 D, Glucose 107 H D, Calcium 8.1 L, Magnesium 2.4 H, Total Bilirubin 1.0, AST 52 H, ALT 49 D, Alkaline Phosphatase 90, Total Protein 5.6 L D, Albumin 3.3 L D, Globulin 2.3, Albumin/Globulin Ratio 1.4 07/03/24 00:25: Sodium 132 L, Potassium 2.7 L*, Chloride 96 L, Carbon Dioxide 36 H, Anion Gap 2.7 L, BUN 15, Creatinine 0.90, Estimated Creat Clear 115, Estimated GFR 67, Est GFR ( Amer) 81, Glucose 108 H, Calcium 8.2 L I & O for Last 24 hours: Intake & Output 06/30/24 07/01/24 07/02/24 07/03/24 23:59 23:59 23:59 23:59 Intake Total 630 / 630 Output Total 0 / 0 Balance 630 / 630 Weight 96.615 kg 96.615 kg Microbiology Reports for the Last 24 Hours: Microbiology 07/01/24 23:55 Blood Blood Culture - Preliminary NO GROWTH AFTER 24 HOURS 07/01/24 23:55 Blood Blood Culture - Preliminary NO GROWTH AFTER 24 HOURS Constitutional Constitutional: no acute distress *Routine HEENT Exam Head: Present normocephalic Eye: Present EOMI and PERRL ENT: Present mucous membranes moist *Routine Neck Exam Neck: Present supple; Absent lymphadenopathy *Routine Respiratory Exam Respiratory: Present CTA bilaterally *Routine Cardiovascular Exam Cardiovascular: Present RRR *Routine Abdominal Exam Abdominal: Present soft and normoactive bowel sounds; Absent tenderness *Routine Extremities Exam Extremities: Absent cyanosis, clubbing or edema *Routine Skin Exam Skin: Present warm; Absent rash *Routine Neurological Exam Neurological: Present alert and oriented X3 Routine Psychiatric Exam Psychiatric: Present depressed and anxious Assessment and Plan *Assessment and plan (1) ZENIA (acute kidney injury): Status: Acute Category: Medical Code(s): N17.9 - Acute kidney failure, unspecified (2) Acute hypokalemia: Status: Acute Category: Medical Code(s): E87.6 - Hypokalemia (3) Alcohol withdrawal: Status: Acute Qualifiers: Complication of substance-induced condition: with unspecified complication Qualified Code(s): F10.939 - Alcohol use, unspecified with withdrawal, unspecified Category: Medical Code(s): F10.939 - Alcohol use, unspecified with withdrawal, unspecified Plan Assessment: This is a 49-year-old female being admitted for hypokalemia and ZENIA. On my exam, patient is lying in bed in no acute distress. Reports she is feeling much better. Plan: Admit to observation-MedSurg #Nausea/vomiting, likely induced #Anxiety/depression, suspected bulimia #Hypokalemia, hyponatremia, hypomagnesemia, hypochloremia #ZENIA ? Patient has had significant life stressors recently and visibly very anxious and tearful at times. In short, patient is having issues at her workplace. Denies SI/HI. ? Patient has been drinking 8 white claw beers for more than a week due to stressors. Last drink on 07/01/2024 night. ? Patient is very reserved at times but pleasant, but eventually admitted to nausea/vomiting that is likely induced in the setting of severe anxiety. ? Initial sodium 129, potassium 1.7, chloride 76, anion gap 16.7, creatinine 1.4 ? Improved to sodium 132, potassium 2.7, chloride 96, AGAP 2.7, creatinine 0.90 with IV fluid resuscitation and potassium runs. ? Continue NS at 100 mL/h, potassium 20 mEq IV runs. ? Follow-up BMP in the morning. ? Resumed and increased home citalopram to 40 mg daily, propranolol 40 mg daily ? Trazodone nightly for sleep. #Alcohol use disorder #Alcohol withdrawal ? Patient is very motivated to seek help for her alcohol use disorder. She states an inpatient detox program would be ideal for her. ? [facility] protocol, treat with diazepam if score greater than 7. Patient has only really required 2 doses of Valium since admission. ? Plan to reach out to peer support in the morning as patient only opened up after hours. ? Consider naltrexone on discharge. DVT prophylaxis: Heparin CODE STATUS: Full code Surrogate decision maker: Nesha [phone].
--- NOTE | 2024-07-03 06:22 | PC.NURSE ---
07/03/24 Pt. is alert and orientated x 4. she was admitted for hypokalemia and alcohol withdraw. Pt. has IVF running. She has gotten 3 bags of Potassium overnight. her potassium level is still low. CIWA score zero. Pt. has no c/o's of pain. Pt. was anxious overnight and required Valium and Trazadone. . Pt. got some sleep. Vital signs stable, Personal items and call white in reach.
[2024-07-03] MEDS: FLUTICASONE PROP 50MCG NASAL SPRAY 16GM 2 SPRAY NS (08:25)
[2024-07-03] MEDS: CITALOPRAM 20MG TABLET 20 MG PO (08:25)
[2024-07-03] MEDS: PROPRANOLOL 20MG TAB 40 MG PO (08:25)
[2024-07-03] MEDS: 0.9 % SODIUM CHLORIDE 1000ML 1,000 ML 100 ML IV ×2 (08:30→18:43)
[2024-07-03 08:39] LABS: Chloride 102 mmol/L (98-107); Sodium 135 mmol/L (136-145)
[2024-07-03 08:43] LABS: Blood Urea Nitrogen 13 mg/dl (7-17); Calcium 8.3 mg/dl (8.4-10.2); Carbon Dioxide 33 mmol/L (22.0-30.0); Creatinine Clearance Estimated 99 mL/min (50-200); Estimated Glomerular Filt Rate 53 ml/min (>60); GFR (African American) 64 ML/MIN (>60); Glucose 95 mg/dl (74-100); Magnesium 2.1 mg/dl (1.6-2.3)
[2024-07-03] MEDS: POTASSIUM CHLORIDE 20MEQ TAB 40 MEQ PO ×4 (09:34→20:59)
[2024-07-03 14:51] LABS: Chloride 103 mmol/L (98-107)
[2024-07-03 14:52] LABS: Sodium 135 mmol/L (136-145)
[2024-07-03 14:55] LABS: Blood Urea Nitrogen 13 mg/dl (7-17); Calcium 8.2 mg/dl (8.4-10.2); Carbon Dioxide 31 mmol/L (22.0-30.0); Creatinine Clearance Estimated 121 mL/min (50-200); Estimated Glomerular Filt Rate 67 ml/min (>60); GFR (African American) 81 ML/MIN (>60); Glucose 103 mg/dl (74-100)
--- NOTE | 2024-07-03 15:11 | PC.NURSE ---
pt has remained on room air this shift. pt has remained alert and oriented x4. pt CIWAs have not gotten above 0. pt has been ambulating to and from bathroom without assistance. pt is now taking PO replacement for K+ levels. was made aware of critical K+ of 3.0 @1505. Yaneth instructed this RN to fax order for 40meq of potassium chloride PO for 2100 tonight and 0900 for tomorrow morning. pharmacy fax sheet was sent, awaiting order. pt has had no complaints throughout shift. pt is planned to be dc tomorrow to [facility] rehab facility d/t alcohol addiction. pt is agreeable. no new orders at this time. call light within reach.
--- NOTE | 2024-07-03 15:33 | P.PN_ITS ---
Subjective *Date: 07/03/24 *Time: 15:33 Interval history: Patient showing improvement in CIWA scores, scoring in the low single digits over the past 24 hours. Requiring minimal Valium. Requesting inpatient rehab. Reaching out to [facility] today. Stable on room air. Tolerating p.o. intake but not finishing trays. Medical Exam Vital signs and Labs for Last 24 Hours: Vital Signs Temp Pulse Pulse Resp BP Pulse Ox O2 Del Method 07/03/24 14:43 Room Air 07/03/24 13:00 Room Air 07/03/24 12:00 97.9 F 76 14 113/81 97 Room Air 07/03/24 11:00 Room Air 07/03/24 09:00 Room Air 07/03/24 08:00 110 H 07/03/24 08:00 98.1 F 98 H 20 138/95 H 94 L Room Air 07/03/24 08:00 Room Air 07/03/24 07:00 Room Air 07/03/24 06:56 90 07/03/24 04:38 Room Air 07/03/24 04:00 98.2 F 88 18 148/61 H 93 L Room Air 07/03/24 03:00 Room Air 07/03/24 01:00 Room Air 07/03/24 00:00 86 07/03/24 00:00 98.2 F 87 16 146/82 H 94 L Room Air 07/02/24 23:00 Room Air 07/02/24 21:00 Room Air 07/02/24 20:00 Room Air 07/02/24 20:00 83 07/02/24 19:27 97.6 F 82 18 131/84 95 Room Air 07/02/24 18:33 Room Air 07/02/24 16:25 Room Air 07/02/24 16:00 80 07/02/24 16:00 98.1 F 89 19 139/88 94 L Room Air Intake and Output 07/02/24 07/03/24 07/03/24 23:59 07:59 15:59 Intake Total 120 / 630 1932 Output Total 0 / 0 Balance 120 / 630 1932 Intake: Intake, Oral Amount 120 / 630 950 / 950 Intake, Total IV Amount 983 / 983 0.9 % Sodium Chloride 1000ML 1, 983 / 983 000 ml @ 100 mls/hr IV .Q10H [facility] Rx#:[id number] Output: Output, Urine Amount 0 / 0 Other: Number of Unmeasured Voids 1 Weight 101.378 kg Patient Weight 07/03/24 23:59 Weight 101.378 kg Laboratory Results - last 24 hr 07/02/24 19:40: Sodium 132 L, Potassium 2.6 L*, Chloride 93 L, Carbon Dioxide 36 H, Anion Gap 5.6, BUN 18 H, Creatinine 0.90, Estimated Creat Clear 115, Estimated GFR 67, Est GFR ( Amer) 81 D, Glucose 107 H D, Calcium 8.1 L, Magnesium 2.4 H, Total Bilirubin 1.0, AST 52 H, ALT 49 D, Alkaline Phosphatase 90, Total Protein 5.6 L D, Albumin 3.3 L D, Globulin 2.3, Albumin/Globulin Ratio 1.4 07/03/24 00:25: Sodium 132 L, Potassium 2.7 L*, Chloride 96 L, Carbon Dioxide 36 H, Anion Gap 2.7 L, BUN 15, Creatinine 0.90, Estimated Creat Clear 115, Estimated GFR 67, Est GFR ( Amer) 81, Glucose 108 H, Calcium 8.2 L 07/03/24 08:28: Sodium 135 L, Potassium 3.0 L, Chloride 102, Carbon Dioxide 33 H , Anion Gap 3.0 L, BUN 13, Creatinine 1.10 H D, Estimated Creat Clear 99, Estimated GFR 53 L, Est GFR ( Amer) 64 D, Glucose 95, Calcium 8.3 L, Magnesium 2.1 D 07/03/24 14:00: Sodium 135 L, Potassium 3.0 L, Chloride 103, Carbon Dioxide 31 H , Anion Gap 4.0 L, BUN 13, Creatinine 0.90, Estimated Creat Clear 121, Estimated GFR 67, Est GFR ( Amer) 81 D, Glucose 103 H, Calcium 8.2 L I & O for Labs for Last 24 Hours: Intake & Output 06/30/24 07/01/24 07/02/24 07/03/24 23:59 23:59 23:59 23:59 Intake Total 630 / 630 1932 Output Total 0 / 0 0 / 0 Balance 630 / 630 1932 Weight 96.615 kg 96.615 kg 101.378 kg Microbiology Reports for the Last 24 Hours: Microbiology 07/01/24 23:55 Blood Blood Culture - Preliminary NO GROWTH AFTER 24 HOURS 07/01/24 23:55 Blood Blood Culture - Preliminary NO GROWTH AFTER 24 HOURS Constitutional: Present no acute distress, obese and cooperative Head: Present atraumatic and normocephalic ENT: Present normal exam Respiratory: Present normal respiratory effort; Absent rhonchi, wheezes or crackles Cardiac: Present Reg Rate and Rhythm GI: Present normal bowel sounds; Absent tenderness Extremities: Present normal inspection and full ROM Skin: Present intact; Absent erythema Neuro: Present Grossly Intact, alert, awake, oriented x 3 and moves all extremities Additional Findings:: Anxious Assessment and Plan *Assessment and plan (1) ZENIA (acute kidney injury): Status: Acute Category: Medical Code(s): N17.9 - Acute kidney failure, unspecified (2) Acute hypokalemia: Status: Acute Category: Medical Code(s): E87.6 - Hypokalemia (3) Alcohol withdrawal: Status: Acute Qualifiers: Complication of substance-induced condition: with unspecified complication Qualified Code(s): F10.939 - Alcohol use, unspecified with withdrawal, unspecified Category: Medical Code(s): F10.939 - Alcohol use, unspecified with withdrawal, unspecified (4) Obesity (BMI 30.0-34.9): Status: Chronic Category: Medical Code(s): E66.811 - Obesity, class 1 Plan This is a 49-year-old female being admitted for hypokalemia and ZENIA. Showing some improvement. Continuing to require potassium replacement. Anticipate discharge in the next day or 2. Will assist with transitioning to inpatient rehab for alcohol dependence. Problems addressed as follows: #Nausea/vomiting, likely induced #Anxiety/depression, suspected bulimia #Hypokalemia, hyponatremia, hypomagnesemia, hypochloremia #ZENIA ? Patient has had significant life stressors recently and visibly very anxious and tearful at times. In short, patient is having issues at her workplace. Denies SI/HI. ? Patient has been drinking 8 white claw beers for more than a week due to stressors. Last drink on 07/01/2024 night. ? Initial sodium 129, potassium 1.7, chloride 76, anion gap 16.7, creatinine 1.4; sodium 132, potassium 2.7, magnesium 2.1. Kidney function normal with creatinine 0.9. Overall doing better. Repeat BMP this afternoon, repeat CMP, CBC, magnesium ordered for the morning. -Potassium replacement p.o. per protocol ? increased home citalopram to 40 mg daily, propranolol 40 mg daily ? Trazodone nightly for sleep. #Alcohol use disorder #Alcohol withdrawal ? Patient is very motivated to seek help for her alcohol use disorder. She states an inpatient detox program would be ideal for her. ? [facility] to [facility] today, willing to take patient. Will evaluate for discharge and transport tomorrow -Continue CIWA protocol, scores less than 4. No value in the past 24 hours DVT prophylaxis: Heparin CODE STATUS: Full code Surrogate decision maker: Nesha [phone]. Regular diet
--- NOTE | 2024-07-03 20:18 | EXP.EVENT.NO ---
Received phone call, from a person at [facility] who was working on getting the patient into rehabilitation tomorrow.. Due to an insurance problem they are not able to admit her in the morning. PLAN I have let the the patient know about this change., She noted she will would be anxious to be able to be released as soon as able., She knows that she can talk with the daytime provider tomorrow., I have let her know that we will inform case management about this and come up with a different plan patient is happy with this she has a smile on her face she was not disturbed in any way.. Stated she feels much better than she has felt for quite a while. Patient did asked the nurse for an extra dose of her trazodone normally on 50 will give her a one-time dose total of 100 mg tonight. Presently there are no signs of any type of withdrawal.
[2024-07-04] VITALS: BP 147/91; PULSE 77; PULSE 80; RESP 16; TEMP 36.7; O2SAT 98
--- NOTE | 2024-07-04 03:33 | P.DS_ITS ---
General Admission date:: 07/02/24 Discharge date: 07/04/24 HPI HPI HPI: Mckayla Miller is a 49-year-old female past medical history significant for alcohol abuse, anxiety, depression, HTN who presents emergency room tonight with complaints of ear pain. Ms. Miller reports she fell like she had some swollen nodules bilaterally around her neck and behind her ears, reports denies any fever. Tells me she is a daily drinker, drinks 8 or more white claws daily. Denies any alcohol withdrawal or seizures in the past. Did have 1 drink earlier today. Works at a local long-term. Denies any cough, chest pain, shortness of breath, abdominal pain, bowel or bladder dysfunction. No dysuria noted. No nausea, vomiting, diarrhea. No focal neurodeficits noted. Denies a headache or neck pain. Smokes about a pack of cigarettes per day. Denies any illicit drug use. Lab work in the ER showed an elevated white count of 16,000, potassium critically low at 1.7, sodium at 129. BUN and creatinine elevated at 25 and 1.4, anion gap elevated at 16. Lactic acid at 1.4, she was negative for flu and COVID. Serum alcohol level is less than 10. Patient presented tachycardic and anxious appearing. She was given Valium down in the ER and at 1 L IV fluid bolus. She was also started on a banana bag . She will be admitted to the hospitalist service for hypokalemia and ZENIA. Hospital Course Hospital Course Hospital Course: Patient came in with severe electrolyte imbalance which has basically been corrected, just below normal levels on last lab. Patient initially wanted to go to inpatient rehab. Attempts made to refer to rehab. Patient was referred to the [facility], unfortunately her insurance would not cover this. This appeared to upset her which led to her choosing to leave AGAINST MEDICAL ADVICE in the middle of the night. Patient is alert and oriented is not homicidal or suicidal. She says she that she does not want to stay here and could not be convinced to change her mind. So at this time of asked nursing staff to commence with the AMA discharge, and to remove the patient's IV Patient understands that if she needs to return to the hospital she needs to go through the emergency room that she cannot come straight back up to the floor. Exam Data for Last 24 hours Vital signs and Labs for Last 24 Hours: Temp Pulse Resp BP Pulse Ox O2 Del Method 98.0 F 77 16 147/91 H 98 Room Air 07/04/24 00:00 07/04/24 00:00 07/04/24 00:00 07/04/24 00:00 07/04/24 00:00 07/04/24 00:00 Laboratory Results - last 24 hr 07/03/24 08:28: Sodium 135 L, Potassium 3.0 L, Chloride 102, Carbon Dioxide 33 H , Anion Gap 3.0 L, BUN 13, Creatinine 1.10 H D, Estimated Creat Clear 99, Estimated GFR 53 L, Est GFR ( Amer) 64 D, Glucose 95, Calcium 8.3 L, Magnesium 2.1 D 07/03/24 14:00: Sodium 135 L, Potassium 3.0 L, Chloride 103, Carbon Dioxide 31 H , Anion Gap 4.0 L, BUN 13, Creatinine 0.90, Estimated Creat Clear 121, Estimated GFR 67, Est GFR ( Amer) 81 D, Glucose 103 H, Calcium 8.2 L I & O for Last 24 hours: Intake & Output 07/01/24 07/02/24 07/03/24 07/04/24 05:59 05:59 05:59 05:59 Intake Total 630 / 630 3168 / 3168 Output Total 0 / 0 0 / 0 Balance 630 / 630 3168 / 3168 Weight 212 lb 15.994 oz 223 lb 8 oz Microbiology Reports for the Last 24 Hours: Microbiology 07/01/24 23:55 Blood Blood Culture - Preliminary NO GROWTH AFTER 48 HOURS 07/01/24 23:55 Blood Blood Culture - Preliminary NO GROWTH AFTER 48 HOURS Constitutional Constitutional: no acute distress and obese *Routine HEENT Exam Head: Present normocephalic and atraumatic Eye: Present EOMI and PERRL ENT: Present mucous membranes moist *Routine Neck Exam Neck: Present supple and full ROM Routine Chest/Breast/Axilla Exam Comments: No signs of discomfort or pain *Routine Respiratory Exam Respiratory: Present normal respiratory effort, able to speak in complete sentences and symmetric chest movement *Routine Cardiovascular Exam Cardiovascular: Present RRR, Normal S1 and Normal S2 *Routine Abdominal Exam Abdominal: Present soft and obese Comments: Reports no nausea or abdominal pain *Routine Extremities Exam Comments: Patient able to stand and walk with good balance Routine Back/Spine/Pelvis Exam Back/Spine: Present full ROM Comments: No signs of injuries or disability *Routine Skin Exam Skin: Present intact and warm *Routine Neurological Exam Neurological: Present alert, oriented X3, CN II-XII intact, vision grossly intact, hearing grossly intact and normal speech Routine Psychiatric Exam Psychiatric: Present normal affect and normal thought process Comments: Have talked with the patient she denies any thoughts of harming herself or anyone else. She does not want to stay here any longer. 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 She expressed understanding of that. Then went over other things with her that if she went back to drinking not to drive, that if she ended up with a DUI that would be 1 thing if she ran into somebody and hurt them it would be criminal. I tried to give her many reasons to stay in to be patient but she was not willing to do that.. To nursing staff were in the room while I was speaking with the patient. She stated that she had her car here and that she was going to drive herself home. Results Data Completed and Pending Labs on day of discharge: Labs from last 24 hours 07/03/24 07/03/24 14:00 08:28 Sodium 135 L 135 L Potassium 3.0 L 3.0 L Chloride 103 102 Carbon Dioxide 31 H 33 H Anion Gap 4.0 L 3.0 L BUN 13 13 Creatinine 0.90 1.10 H D Estimated Creat Clear 121 99 Estimated GFR 67 53 L Est GFR ( Amer) 81 D 64 D Glucose 103 H 95 Calcium 8.2 L 8.3 L Magnesium 2.1 D Preliminary micro results at discharge 07/01/24 23:55 Blood Culture - Preliminary Blood NO GROWTH AFTER 48 HOURS 07/01/24 23:55 Blood Culture - Preliminary Blood NO GROWTH AFTER 48 HOURS Impressions Impressions: 1. Apparent history of alcohol abuse 2. Lecture light imbalance question related to alcohol abuse 3. Patient wanting to sign out AMA, despite counseling that this would be against my advice and for reasons for her to stay she has declined to change her mind. DS: Diagnosis Discharge Diagnosis (1) ZENIA (acute kidney injury): Status: Acute Code(s): N17.9 - Acute kidney failure, unspecified Problem details: Improved on last labs (2) Acute hypokalemia: Status: Acute Code(s): E87.6 - Hypokalemia Problem details: Improving on last labs (3) Alcohol withdrawal: Status: Acute Code(s): F10.939 - Alcohol use, unspecified with withdrawal, unspecified Qualifiers: Complication of substance-induced condition: with unspecified complication Qualified Code(s): F10.939 - Alcohol use, unspecified with withdrawal, unspecified Problem details: No acute signs of alcohol withdrawal at this time and CIWA score 0 (4) Obesity (BMI 30.0-34.9): Status: Chronic Code(s): E66.811 - Obesity, class 1 Meds Home Medications and Allergies Home Medications ?Medication ?Instructions ?Recorded ?Confirmed ?Type escitalopram oxalate 10 mg tablet 10 mg PO DAILY 07/02/24 07/02/24 History methylphenidate HCl 20 mg tablet 20 mg PO TID 07/02/24 07/02/24 History propranolol 40 mg tablet 40 mg PO DAILY 07/02/24 07/02/24 History trazodone 50 mg tablet 50 mg PO HS 07/02/24 07/02/24 History New Prescriptions to Start Prescriptions: Allergies Allergy/AdvReac Type Severity Reaction Status Date / Time Sulfa (Sulfonamide Allergy Unknown Hives Verified 07/01/24 23:35 Antibiotics) (SULFA (SULFONAMIDE ANTIBIOTICS)) Discharge Plan Disposition Patient Disposition: Left Against Medical Advice Condition: Good Patient Discharge Instructions Print Language: Gabonese Providers Admit Provider: Bautista Garcia Attending Provider: Bautista Garcia
--- NOTE | 2024-07-04 03:40 | PC.NURSE ---
07/04/24 0305: Pt. asked to speak to nurse. This RN arrived at bedside and pt. states that she wanted to sign out AMA. I spoke to patient and she stated that she wanted to leave and not have to deal with drama in the morning . Charge nurse Jacinta notified and Sampson Bustos APRN notified. Both came to patients room . Sampson explained the risk of leaving AMA. Patient decided to leave now despite the risk. IV was taken out of left arm. Pt. signed AMA form. Pt. got dressed. This RN walked her down to the ER exit. She states that her car was in the ER parking lot.
--- NOTE | 2024-07-05 11:59 | SW/DCPLANNER ---
Spoke with patient on the phone. Patient stated that she is doing good and that its in the works at getting help to detox. Patient was praising Susu her nurse and Janice her CRUCIBLE PACKER. She said she had excellent treatment and the staff is amazing. Patient stated she has no concerns or questions at this time. Ashwin Winters
== END 2024-07-04 03:30 | disposition left against medical advice (07) ==
LOC: ER 22:59 → 2ND 07-02 08:11
PROVIDERS: Internal Medicine Adolescent Medicine; Nurse Practitioner Acute Care; Admitting Provider Student in an Organized Health Care Education/Training Program; Emergency Provider Emergency Medicine; Visit Provider Student in an Organized Health Care Education/Training Program
DX: N17.9 Acute kidney failure, unspecified (principal); E87.6 Hypokalemia; F10.939 Alcohol use, unspecified with withdrawal, unspecified; E66.811 Obesity, class 1; F17.210 Nicotine dependence, cigarettes, uncomplicated; E87.1 Hypo-osmolality and hyponatremia; I10 Essential (primary) hypertension; Z68.33 Body mass index [BMI] 33.0-33.9, adult; Z79.899 Other long term (current) drug therapy
CPT/HCPCS: 36415; 70481; 80048; 80053; 80307; 80320; 83605; 83735; 84100; 84132; 84703; 85007; 85025; 85027; 85610; 85730; 87040; 87636; 93005; 99285; G0378; G0480; J0736; J1885; J3411; J3480; J7030; J7120; Q9967